=== PATIENT | male | born 1980 | race Two or more races ===

== ENCOUNTER 2016-05-02 17:56 | Emergency (ER) | payer BC, OTHER ==
[2016-05-02 18:04] VITALS: BP 180/109
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
[2016-05-02 19:49] LABS: Hematocrit 50 % (42-52); Hemoglobin 16.9 g/dl (14.0-18.0); Mean Corpuscular HGB Conc 34 g/dl (31-36); Mean Corpuscular Hemoglobin 29 pg (27-31); Mean Corpuscular Volume 86 fL (80-94); Mean Platelet Volume 9 um3 (7.4-10.4); Red Blood Count 5.87 10^6/ul (4.0-5.4); Red Cell Distribution Width 14 % (10.5-15); White Blood Count 11.8 10^3/ul (3.5-10.8)
[2016-05-02 20:04] LABS: Albumin 4.9 g/dL (3.2-5.2); BUN/Creatinine Ratio 13.3 (8-20); Calcium 10.1 mg/dL (8.6-10.3); EGFR African American 110.1 (>60); EGFR Non-African American 85.6 (>60); Globulin 3.3 g/dL (2-4); Potassium 3.7 mmol/L (3.5-5.0); Total Bilirubin 0.4 mg/dL (0.2-1.0); Total Protein 8.2 g/dL (6.4-8.9)
[2016-05-02] MEDS ORDERED: Iohexol 300* (CONTRAST) 10 ML SDV IV ONE (20:17)
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
== END 2016-05-02 21:07 | disposition home or self-care (01) ==
LOC: ED 17:56
DX: R10.84 Generalized abdominal pain (principal); M54.2 Cervicalgia; R07.81 Pleurodynia; F17.210 Nicotine dependence, cigarettes, uncomplicated
CPT/HCPCS: 36415; 72125; 80053; 85025; 99281

== ENCOUNTER 2017-09-17 23:21 | Observation (INO) | payer BC, OTHER ==
[2017-09-17] MEDS ORDERED: Albuterol/Ipratropium NEB.SOL* Albuterol 2.5 MG/Ipratropium 0.5 MG 3 ML ONE (23:47)
[2017-09-17] MEDS ORDERED: Furosemide IV* 10 MG/ML VIAL (40 MG) IV ONE (23:48)
[2017-09-17] MEDS ORDERED: Nitroglycerin 2% OINT* 1 GM PAK TOPICAL ONE (23:49)
[2017-09-17] MEDS ORDERED: nitroGLYCERIN DRIP* 25,000 MCG/250 ML BTL IV ONE (23:53)
[2017-09-18 00:26] LABS: ABS Basophils 0.1 10^3/ul (0-0.2); ABS Eosinophils 0.3 10^3/ul (0-0.6); ABS Lymphocytes 3.6 10^3/ul (1.0-4.8); ABS Monocytes 0.8 10^3/ul (0-0.8); ABS Neutrophils 6.3 10^3/ul (1.5-7.7); ABS Nucleated RBC 0 10^3/ul; Eosinophil % 2.7 % (0-6); Hematocrit 50 % (42-52); Lymphocyte % 32.2 % (25-47); Mean Corpuscular HGB Conc 34 g/dl (31-36); Mean Corpuscular Hemoglobin 29 pg (27-31); Mean Corpuscular Volume 87 fL (80-94); Mean Platelet Volume 8.3 um3 (7.4-10.4); Nucleated Red Blood Cells % 0.1; Platelet Count 234 10^3/ul (150-450); Red Blood Count 5.81 10^6/ul (4.00-5.40); Red Cell Distribution Width 15 % (10.5-15)
[2017-09-18 00:28] LABS: INR 0.95 (0.77-1.02)
[2017-09-18 00:37] LABS: EGFR Non-African American 59.3 (>60)
[2017-09-18] MEDS ORDERED: Aspirin 81 mg CHEW TAB* 81 MG TAB.CHEW PO ONE (00:50)
[2017-09-18] MEDS ORDERED: Nitroglycerin 2% OINT* 1 GM PAK ONE (01:07)
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
[2017-09-18] MEDS ORDERED: ALPRAZolam TAB* 0.5 MG PO PRN (01:47)
[2017-09-18] MEDS ORDERED: Ondansetron INJ* 2 MG/ML VIAL IV PRN (01:48)
[2017-09-18] MEDS ORDERED: Dextrose 50% Syringe 50 ML* 25 GM/50 ML SYRINGE IV PUSH PRN (01:56)
[2017-09-18] MEDS: Acetaminophen TAB* 325 MG PO PRN ×2 (03:33→23:14)
[2017-09-18 06:30] LABS: ABS Basophils 0.2 10^3/ul (0-0.2); ABS Eosinophils 0.2 10^3/ul (0-0.6); ABS Lymphocytes 3.1 10^3/ul (1.0-4.8); ABS Neutrophils 8.4 10^3/ul (1.5-7.7); ABS Nucleated RBC 0 10^3/ul; Eosinophil % 1.9 % (0-6); Hematocrit 45 % (42-52); Hemoglobin 15.5 g/dl (14.0-18.0); Lymphocyte % 23.8 % (25-47); Mean Corpuscular HGB Conc 34 g/dl (31-36); Mean Corpuscular Hemoglobin 30 pg (27-31); Mean Corpuscular Volume 86 fL (80-94); Mean Platelet Volume 8.2 um3 (7.4-10.4); Nucleated Red Blood Cells % 0; Platelet Count 218 10^3/ul (150-450); Red Blood Count 5.26 10^6/ul (4.00-5.40); Red Cell Distribution Width 14 % (10.5-15); White Blood Count 12.9 10^3/ul (3.5-10.8)
--- NOTE | 2017-09-18 07:04 | HP ---
HISTORY AND PHYSICAL: DATE OF ADMISSION: 09/18/17. PRIMARY CARE PROVIDER: Dr. Harrison. HEALTHCARE PROXY: His brother. CODE STATUS: Full. SOURCE OF INFORMATION: History obtained from interview with the patient, review of past medical records. RELIABILITY: Good. CHIEF COMPLAINT: Shortness of breath. HISTORY OF PRESENT ILLNESS: This is a 37-year-old man, who had been in his usual state of health until approximately 1 week ago on Sunday after he drove to [place], woke up suddenly and noticed he was short of breath, hyperventilating and wheezing. He exited the hotel room he was staying and then felt better; however, always felt worse when lying flat but did not feel relieved when sitting up. He noticed worsening dyspnea on exertion throughout the day from his usual exercise tolerance approximately unlimited down to only be able to walk approximately 15 feet without becoming very short of breath. Denied any shortness of breath but did note throughout the week, he developed a cough with several episodes of scant blood in his sputum. Denied any fevers or chills and after returning home 3 days prior to presentation, did note that he started to feel better. He was able to walk a little bit further without dyspnea on exertion; however, still felt below his baseline. On the day of admission, he walked up the stairs to his home, felt tightness in his chest that was relieved with rest but had worsening shortness of breath. It is not associated with nausea, vomiting, or diaphoresis but was noted to be quite diaphoretic on presentation to the hospital. Presenting to the emergency room, he was noted to be tachypneic and hypoxic with presenting blood pressures 205 up to 212 over 125. He was given nitro paste as well as Lasix IV after which he diuresed 800 cc and felt much improved. When seen by this author, he felt much better, although has not ambulated, is no longer short of breath, has no chest pain or other complaints. PAST MEDICAL HISTORY: [place], does not use CPAP although was prescribed; childhood asthma; hypertension; HIV since 2001 on HAART; peripheral neuropathy secondary to HAART mostly in his hands; hyperlipidemia; type 2 diabetes; anxiety and depression; bilateral carpal tunnel release. MEDICATIONS: The patient did not bring a list of his medications, can only recall a few but no doses. He gets his medications from [facility] on [address]. His medications include: 1. Tivicay. 2. Descovy. 3. Tradjenta. 4. Zetia. 5. Hyzaar. 6. Another blood pressure medication. 7. Pravastatin. 8. Xanax 3 times a day. ALLERGIES: No known drug allergies. FAMILY HISTORY: Brother with CAD in his 40s. Father with CAD in his 40s, at 51 from a heart attack. Mother with multiple CVAs. SOCIAL HISTORY: He smokes less than a pack per day for 20 years. No alcohol. No illicits. Works for [employer]. REVIEW OF SYSTEMS: As per HPI including shortness of breath, cough, several episodes of scant blood in the sputum. Otherwise all other systems reviewed are negative. PHYSICAL EXAMINATION GENERAL: Pleasant, sitting up, interactive, in no apparent distress. VITAL SIGNS: When seen by this author, 144/101, heart rate 105, respiratory rate is 18, he is 97% on 2 L, T-max in the emergency room 97.6. HEENT: Oropharynx is clear. Has what appears to be tooth damage in his right lower mouth without pain. He has moist mucous membranes. The sclerae are anicteric. NECK: He has no cervical or supraclavicular lymphadenopathy. LUNGS: Rales in bilateral bases, scattered up to about mid section but not significant clearing the apices. HEART: He has a tachycardic heart rate without murmurs. ABDOMEN: Soft, nontender, and nondistended. EXTREMITIES: Warm and well-perfused. Very trace lower extremity edema. NEUROLOGIC: He is alert and oriented x3. His cranial nerves II to XII are intact. He has no apparent anxiety, agitation, or depression. DIAGNOSTIC STUDIES/LAB DATA: Labs reviewed. Notable for a white blood cell count of 11, hemoglobin 17, platelets 234. Creatinine is 1.34. Troponin I is 0.04. CRP is 19.3. BNP is 99. Data reviewed. Chest x-ray, bilateral pulmonary vascular congestion, no evidence for héctor consolidation on his AP film. EKG, left bundle-branch block, rate of 117. ASSESSMENT AND PLAN: This is a 37-year-old man, who had sudden onset new dyspnea on exertion approximately 1 week prior to presentation with worsening dyspnea on exertion throughout the week now presenting, found tachypneic, new left bundle- branch block since 2003, and hypertension. 1. Hypoxic respiratory failure on admission, resolved with nitroglycerin and Lasix. Likely appears secondary to pulmonary edema, however unclear why he developed new pulmonary edema. Sudden onset of shortness of breath is concerning for pulmonary embolism; however, this would not explain well the rapid resolution with control of his blood pressure and Lasix. The patient indicates he has been tachycardic consistently in the past and this is verified through our previous records. There is concern for an underlying silent cardiac event, potentially leading to heart failure. The EKG was discussed with Dr. Mcknight and Dr. Tolbert. It is my plan to [facility] We will trend troponins. Cardiology consult. Check transthoracic echocardiogram. We will maintain the patient n.p.o. Check lipids, hemoglobin A1c and start an aspirin for elevated troponin with new hypoxia. This may be in the setting of uncontrolled blood pressure. We can consider CTA if no cardiac intervention is sought and transthoracic echocardiogram does not elucidate underlying reason. 2. Hypertension. The patient is unclear of his medications at this time. I am starting amlodipine and hydrochlorothiazide in the morning. He is well controlled at this time. 3. Elevated troponins. Plan as above including trending troponins, Cardiology consult, transthoracic echocardiogram, n.p.o., lipids, hemoglobin, and aspirin. 4. Obstructive sleep apnea. Monitor. The patient does not use CPAP at home, although he likely should. 5. Acute kidney injury. New compared to 2017. Suspect in the setting of poor forward flow over the last week. Trend repeat in the morning. 6. Type 2 diabetes. Lispro sliding scale. 7. Human immunodeficiency virus. Encourage the patient to have someone bring in his medications. 8. DVT prophylaxis. The patient is low risk, ambulate ad maxine. [id number]/[facility] #: [id number] [facility] FACILITYKyrie
[2017-09-18 07:11] LABS: EGFR Non-African American 72.2 (>60)
[2017-09-18] MEDS: Insulin LISPRO* 1 UNITS UNIT SUBCUT SCH ×4 (07:24→21:17)
--- NOTE | 2017-09-18 07:24 | RAD ---
INDICATION: Short of breath COMPARISON: April 04, 2014 TECHNIQUE: An AP portable view obtained at 2345 hours is submitted. FINDINGS: Bones/Soft Tissues: There are no acute bony findings. Cardiomediastinal: The cardiac silhouette is mildly prominent. The central pulmonary vessels and interstitium are prominent consistent with moderate interstitial congestion. There is early alveolar changes well. Lungs: Interstitial and alveolar edema. Pleura: There are no pleural effusions. Other: None IMPRESSION: MODERATE VASCULAR CONGESTIVE CHANGES WITH INTERSTITIAL AND ALVEOLAR EDEMA
[2017-09-18] MEDS ORDERED: diPHENhydraMINE PO* 25 MG PO ONE (08:44)
[2017-09-18] MEDS ORDERED: Diazepam TAB(*) 5 MG PO ONE (08:44)
[2017-09-18] MEDS ORDERED: NS 0.9% 1000 ML* 1,000 ML IV SCH (08:45)
[2017-09-18] MEDS: Aspirin 81 mg CHEW TAB* 81 MG TAB.CHEW PO SCH (08:57)
[2017-09-18] MEDS: Hydrochlorothiazide TAB* 25 MG PO SCH (08:57)
[2017-09-18] MEDS ORDERED: amLODIPine TAB* 5 MG PO SCH (09:00)
--- NOTE | 2017-09-18 09:40 | CONS ---
CC: Dr. Harrison CARDIOLOGY CONSULTATION REPORT: DATE OF CONSULT: 09/18/17 INDICATION FOR CONSULTATION: Cardiomyopathy, left bundle branch block. HISTORY OF PRESENT ILLNESS: The patient is a 37-year-old gentleman with a history of hypertension, d iabetes, smoking who has had 1 week of increasing shortness of breath. The patient states that he wa s down in [place] on vacation and had a mild to moderate cough and started having worsening shortn ess of breath over the last week or so. The patient denied any chest pain. He denied any palpitatio ns. No lightheadedness, dizziness or syncope. The patient states that he would feel short of breath just walking 15 feet around his hotel room. The patient came to the emergency room when he got back to [place] and was found to be significantly hypertensive with blood pressure of 212/125. The patient was admitted to the hospital. PAST MEDICAL HISTORY: Significant for: 1. Obstructive sleep apnea. 2. Hypertension. 3. HIV. 4. Peripheral neuropathy. 5. Diabetes. 6. Anxiety. 7. Tobacco use. OUTPATIENT MEDICATIONS: 1. Typical HIV antiretrovirals. 2. Pravastatin. 3. Xanax. ALLERGIES: No known drug allergies. FAMILY HISTORY: Brother had a history of coronary artery disease, father had a heart attack in his 5 0s. SOCIAL HISTORY: He smokes about a pack a day. No other illicit drugs. He works for [employer] . PHYSICAL EXAM: Height is 5 feet 7 inches, weight 244 pounds. Temperature 98, heart rate is 96, bloo d pressure 145/77, respiratory rate is 22, oxygen saturation 94% on room air. Sclerae anicteric. Or opharynx is pink without erythema. Carotids are 2+ without bruits. JVD is normal. Thyroid is normal . Cardiac Exam: S1, S2 without any murmurs, rubs or gallops. Lungs are clear to auscultation bilate rally. There is no dullness to percussion. Abdomen: Soft, nontender, nondistended with normoactive bowel sounds. Extremities: No edema. He has 2+ pulses throughout. The patient is awake and alert and oriented. He moves all 4 extremities equally. DIAGNOSTIC STUDIES/LAB DATA: EKG demonstrates left bundle branch block in normal sinus rhythm. CBC within normal limits. Chemistries within normal limits. Troponin 0.04 and 0.05. BNP is 99. To hardik cholesterol 218, LDL cholesterol of 132. Preliminary echocardiogram report showed mildly to moderately reduced LV systolic function. Ejection fraction 40%. Septal wall motion abnormality consistent with left bundle branch block. No signific ant valvular abnormalities. IMPRESSION: This is a 37-year-old gentleman who has been having a week's worth of mild cough and inc reasing shortness of breath. The patient was admitted to the hospital with severe shortness of breat h and hypertensive crisis. The patient's EKG shows a new left bundle branch block and his echocardiogram shows mildly to moderat jeana reduced LV systolic dysfunction. PLAN/RECOMMENDATIONS: At this point, I am not exactly sure what the cause of this dysfunction is, co uld be a viral syndrome, could be his HIV, could be coronary artery disease. It is my recommendation the patient undergo cardiac catheterization. The patient will maintain his outpatient medications f or blood pressure control. Further recommendations pending the results of his testing. [id number]/[facility] #: [id number]
[2017-09-18 10:05] LABS: ABS Basophils 0.1 10^3/ul (0-0.2); ABS Eosinophils 0.3 10^3/ul (0-0.6); ABS Lymphocytes 2.7 10^3/ul (1.0-4.8); ABS Neutrophils 7.4 10^3/ul (1.5-7.7); ABS Nucleated RBC 0 10^3/ul; Eosinophil % 2.9 % (0-6); Hematocrit 45 % (42-52); Hemoglobin 15.6 g/dl (14.0-18.0); Lymphocyte % 23.5 % (25-47); Mean Corpuscular HGB Conc 34 g/dl (31-36); Mean Corpuscular Hemoglobin 30 pg (27-31); Mean Corpuscular Volume 86 fL (80-94); Mean Platelet Volume 8.5 um3 (7.4-10.4); Nucleated Red Blood Cells % 0; Platelet Count 217 10^3/ul (150-450); Red Blood Count 5.28 10^6/ul (4.00-5.40); Red Cell Distribution Width 14 % (10.5-15); White Blood Count 11.6 10^3/ul (3.5-10.8)
--- NOTE | 2017-09-18 10:13 | ECHO ---
Patient: IVONE PARK [facility] Rec#: [id number] : 1980 Date: 09/18/2017 Age: 37y Height: 170 cm / 66.9 in Weight: 110.5 kg / 243.5 lbs Sex: M BSA: 2.2 Room#: 453 Admit Date#: 09/18/2017 Type: Inpatient Referring: Wai Austin MD Reading: Isma Andre MD Language Translator: Franchesca Narvaez CHRISTIANO CC: Rudolph Harrison MD Transthoracic Echocardiogram Indication: Pulmary Edema BP: 145/77 HR: 91 Rhythm: NSR Findings History: CONNER without CPAP,asthma,HTN,HIV+,DM,anxiety,+ family history. Technical Comments: The study quality is good. Completed at 0857. Left Ventricle: The left ventricular chamber size is mildly dilated. Moderate concentric left ventricular hypertrophy is observed. There is global hypokinesis of the left ventricle with minor regional variation. There is mild to moderately decreased left ventricular systolic function. The estimated ejection fraction is 40-45%. There is a left ventricular septal wall motion abnormality observed, possibly due to the presence of a left bundle branch block. Abnormal left ventricular diastolic function is observed. Left Atrium: The left atrial chamber size is normal. Right Ventricle: The right ventricular cavity size is normal. The right ventricular global systolic function is normal. The septum has abnormal paradoxical motion consistent with left bundle branch block. Right Atrium: The right atrial cavity size is normal. Aortic Valve: The aortic valve is trileaflet. There is no evidence of aortic valve thickening. There is no evidence of aortic regurgitation. There is no evidence of aortic stenosis. Mitral Valve: The mitral valve leaflets are mildly thickened. There is mild mitral regurgitation. There is no evidence of mitral stenosis. Tricuspid Valve: The tricuspid valve leaflets are normal. There is no evidence of tricuspid valve regurgitation. Unable to estimate the right ventricular systolic pressure. There is no tricuspid stenosis. Pulmonic Valve: The pulmonic valve appears normal. There is no evidence of pulmonic regurgitation. There is no pulmonic stenosis. Pericardium: There is no pericardial effusion. A pericardial fat pad is visualized. Aorta: There is no dilatation of the ascending aorta. There is no dilatation of the aortic arch. There is no dilation of the aortic root. Pulmonary Artery: The main pulmonary artery appears normal. Venous: The venous system is not well visualized. Summary: There was not any prior study for comparison. Conclusions Moderate concentric left ventricular hypertrophy is observed. The estimated ejection fraction is 40-45%. There is mild to moderately decreased left ventricular systolic function. The right ventricular global systolic function is normal. There is no evidence of aortic stenosis. There is mild mitral regurgitation. There is no evidence of tricuspid valve regurgitation. Unable to estimate the right ventricular systolic pressure. There is no pericardial effusion. Measurements Name Value Normal Range RVIDd (AP) 2D 3.1 cm (0.9 - 2.6) RVDdMajor (2D) 3.9 cm (2.2 - 4.4) RAd ISD 4CH 3.9 cm (3.4 - 4.9) RA (A4C)W 5 cm (2.9 - 4.6) IVSd (2D) 1.4 cm (0.6 - 1) LVPWd (2D) 1.6 cm (0.6 - 1) LVIDd (2D) 5.8 cm (3.6 - 5.4) LVIDs (2D) 4.4 cm - LV FS 24 % - Aortic Annulus 2.2 cm (1.4 - 2.6) Ao root diameter (2D) 3 cm (2.1 - 3.5) Ascending Ao 2.9 cm (2.1 - 3.4) Aortic arch 2.1 cm (1.8 - 3.4) Descending Ao 0.8 cm - LA dimension (AP) 2D 3.8 cm (2.3 - 3.8) LAd ISD 4CH 3.8 cm (2.9 - 5.3) LA ISD 4CH W 5.8 cm (2.5 - 4.5) Name Value Normal Range LA ESV SP 4CH (A/L) 24 ml - LA ESV SP 2CH (A/L) 29 ml - LA ESV BP (A/L) 59 ml - LA ESV BP (A/L) index 27 ml/m2 - Name Value Normal Range MV E-wave Vmax 1.3 m/sec - MV deceleration time 84 msec - MV A-wave Vmax 0.6 m/sec - MV E:A ratio 2.1 ratio - LV septal e' Vmax 0.5 m/sec - LV lateral e' Vmax 1 m/sec - LV E:e' septal ratio 26 ratio - LV E:e' lateral ratio 13 ratio - Name Value Normal Range AV Vmax 1.6 m/sec - AV VTI 26.7 cm - AV peak gradient 10 mmHg - AV mean gradient 5 mmHg - LVOT Vmax 1.1 m/sec - LVOT VTI 18.2 cm - LVOT peak gradient 5 mmHg - LVOT mean gradient 2 mmHg - Name Value Normal Range PV Vmax 1.2 m/sec - PV peak gradient 6 mmHg -
[2017-09-18] MEDS ORDERED: Heparin 2 UNITS/ML IVPREMIX* 2,000 ML IV ONE (10:15)
[2017-09-18] MEDS ORDERED: Iohexol 350 (CONTRAST) 200 ML MDV IV ONE (10:16)
[2017-09-18] MEDS ORDERED: Lidocaine 1% INJ* 10 MG/ML 30 ML SDV ONE (10:16)
[2017-09-18 10:18] LABS: INR 1.02 (0.77-1.02)
--- NOTE | 2017-09-18 10:23 | PN ---
Subjective Date of Service: 09/18/17 Interval History: Pt feels well. Has been SOB for 1 week. Denies CP. Has been hypertensive "all his life" Objective Active Medications: Acetaminophen (Tylenol Tab*) 650 mg PO Q4H PRN PRN Reason: FEVER/PAIN Last Admin: 09/18/17 03:33 Dose: 650 mg Alprazolam (Xanax Tab*) 1 mg PO TID PRN PRN Reason: ANXIETY Amlodipine Besylate (Norvasc Tab*) 10 mg PO DAILY [facility] Last Admin: 09/18/17 08:57 Dose: 10 mg Aspirin (Aspirin 81 Mg Chew Tab*) 81 mg PO DAILY [facility] Last Admin: 09/18/17 08:57 Dose: 81 mg Atorvastatin Calcium (Lipitor*) 10 mg PO 1400 [facility] Dextrose (D50w Syringe 50 Ml*) 12.5 gm IV PUSH .FOR FS < 60 - SS PRN PRN Reason: FS < 60 Dolutegravir Sodium (Tivicay (Nf)) 50 mg PO 1400 [facility] Hydrochlorothiazide (Hydrodiuril Tab*) 25 mg PO DAILY [facility] Last Admin: 09/18/17 08:57 Dose: 25 mg Sodium Chloride (Ns 0.9% 1000 Ml*) 1,000 mls @ 100 mls/hr IV .per rate [facility] Last Admin: 09/18/17 08:56 Dose: 100 mls/hr Insulin Human Lispro (Humalog*) 0 units SUBCUT Q6H [facility]; Protocol Last Admin: 09/18/17 07:24 Dose: Not Given Ondansetron HCl (Zofran Inj*) 4 mg IV Q4H PRN PRN Reason: NAUSEA/VOMITING Vital Signs - 8 hr 09/18/17 09/18/17 09/18/17 02:18 02:33 04:03 Temperature 98.0 F Pulse Rate 103 101 96 Respiratory 30 34 22 Rate Blood Pressure 141/88 141/98 145/77 (mmHg) O2 Sat by Pulse 97 95 94 Oximetry 09/18/17 09/18/17 09/18/17 07:15 07:30 10:13 Temperature 98.2 F Pulse Rate 92 Respiratory 22 18 18 Rate Blood Pressure 141/76 (mmHg) O2 Sat by Pulse 96 Oximetry Oxygen Devices in Use Now: None, OxyMask Appearance: 37 yo M in nAD, aAOx3 Eyes: No Scleral Icterus, PERRLA Ears/Nose/Mouth/Throat: NL Teeth, Lips, Gums, Mucous Membranes Moist Neck: NL Appearance and Movements; NL JVP, Trachea Midline Respiratory: Symmetrical Chest Expansion and Respiratory Effort, Clear to Auscultation Cardiovascular: NL Sounds; No Murmurs; No JVD, RRR Abdominal: NL Sounds; No Tenderness; No Distention Lymphatic: No Cervical Adenopathy Extremities: No Edema, No Clubbing, Cyanosis Skin: No Rash or Ulcers, No Nodules or Sclerosis Neurological: Alert and Oriented x 3, NL Muscle Strength and Tone Result Diagrams: 09/18/17 09:53 09/18/17 09:53 Assess/Plan/Problems-Billing Assessment: 37 yo M with h/o CONNER/HIV/DM2 presents with pulm edema - Patient Problems (1) Pulmonary edema Comment: EKG with LBBB EF 45% mild troponin levation. clinically markedly improved with SOB resolved, comfortable on RA for cath today cont ASA, appreciate cardiology consult (2) DM2 (diabetes mellitus, type 2) Comment: Cont ISS HbA1C 7.5 (3) Dyslipidemia Comment: LDL 130, lipitor started (4) HIV (human immunodeficiency virus infection) Comment: cont Truvada and Dolutgravir Reguesting med records from [facility] (Morgan Ceballos BOARDING MACHINE OPERATOR [phone]) CD4 count ordered (5) HTN (hypertension) Comment: cont HCTX and Norvasc (6) DVT prophylaxis Comment: low risk, ambulation Status and Disposition: inpatient
[2017-09-18] MEDS ORDERED: fentaNYL* 50 MCG/ML 2 ML VIAL (100 MCG VIAL) ONE (10:24)
[2017-09-18] MEDS ORDERED: Midazolam* 1 MG/ML 10 ML VIAL (10 MG) ONE (10:24)
[2017-09-18] MEDS ORDERED: nitroGLYCERIN DRIP* 25,000 MCG/250 ML BTL ONE (10:28)
[2017-09-18] MEDS ORDERED: Heparin(*) 1000 UNIT/ML 10 ML VIAL CATH LAB IV ONE (10:28)
[2017-09-18] MEDS ORDERED: VERAPAMIL 2.5 MG/ML 2 ML VIAL ** 5 mg/2 ml ONE (10:28)
[2017-09-18] MEDS ORDERED: Albuterol/Ipratropium NEB.SOL* Albuterol 2.5 MG/Ipratropium 0.5 MG 3 ML ONE (10:52)
[2017-09-18] MEDS ORDERED: Albuterol/Ipratropium NEB.SOL* Albuterol 2.5 MG/Ipratropium 0.5 MG 3 ML INH ONE (10:56)
[2017-09-18] MEDS ORDERED: Nicotine Inhaler* 10 MG AMP INH PRN (13:50)
[2017-09-18] MEDS ORDERED: Mouth Piece, Nicotine* 1 EACH CARTRIDGE INH PRN ×2 (13:50)
[2017-09-18] MEDS ORDERED: Atorvastatin* 10 MG TAB PO SCH (14:00)
[2017-09-18] MEDS ORDERED: Dolutegravir (NF) 50 MG TAB PO SCH (14:00)
[2017-09-18] MEDS: Nicotine PATCH 21 MG/24 HR* PATCH TRANSDERM SCH (14:36)
[2017-09-18] MEDS: Lisinopril TAB* 5 MG PO SCH (16:24)
--- NOTE | 2017-09-18 20:37 | CATH ---
CC: Dr. Harrison CARDIAC CATHETERIZATION REPORT: DATE OF PROCEDURE: 09/18/17 PROCEDURE: Cardiac catheterization including right radial artery catheterization, coronary angiograp hy. INDICATION: Cardiomyopathy, congestive heart failure, left bundle-branch block. HISTORY: The patient is a 37-year-old gentleman with a history of hypertension, smoking, HIV who was admitted to the hospital with severe shortness of breath. The patient noticed significant change in his overall status a week ago. It got to the point where he could only walk 15 feet without being s hort of breath. His echocardiogram shows an ejection fraction of 40%. His EKG shows a new left bund le- branch block. Cardiac catheterization was recommended to evaluate coronary artery disease. DESCRIPTION OF PROCEDURE: The patient was in a fasting state. Informed consent had been obtained pr ior to the procedure. All labs had been reviewed. The patient was placed supine on the procedure ta ble. Initially, the patient felt very claustrophobic and had a panic attack, he sat up. The patient was treated with some IV Versed and a nebulizer treatment. This seemed to significantly improve his symptoms. The patient was able to lie down and the right wrist area was prepped and draped in the u sual fashion. 1% lidocaine was used for local anesthesia. The right radial artery was entered by a Seldinger technique and a guidewire was placed. Over the guidewire, a 6-Martiniquais hydrophilic sheath wa s placed. The patient underwent coronary angiography using a 6-Martiniquais TIG catheter and a 6-Martiniquais AR 1 catheter. At the end of the procedure, all sheaths and catheters were removed. The patient tolerat ed the procedure well with no complications. A total of 85 cc of Omnipaque dye was used and a total of 6.2 minutes of fluoro time was used. HEMODYNAMICS: Central aortic blood pressure 143/104 with a mean of 112. Left main artery: The left main was normal in size, it bifurcated into the LAD and circumflex. Ther e was no evidence of stenosis. Left anterior descending artery: The LAD was normal in size. It gave off 3 diagonal vessels. There was no evidence of stenosis. Left circumflex artery: The circumflex artery was normal in size. It gave off 3 obtuse marginal bra nches and the PDA. The was no evidence of stenosis. Right coronary artery: The right coronary artery was a small nondominant vessel without coronary art jonn disease. IMPRESSION: Normal coronary arteries. RECOMMENDATION: The patient will be continued on maximum medical therapy for his congestive heart fa agustin. [id number]/[facility] #: [id number]
[2017-09-18] MEDS ORDERED: Nicotine Patch Removal NOTE PATCH OFF SCH (21:00)
[2017-09-18] MEDS ORDERED: Carvedilol TAB* 6.25 MG PO SCH (21:00)
[2017-09-19] MEDS ORDERED: Potassium Chlor TAB* 20 MEQ TAB.ER PO ONE (03:15)
[2017-09-19 06:47] LABS: ABS Basophils 0.1 10^3/ul (0-0.2); ABS Eosinophils 0.3 10^3/ul (0-0.6); ABS Lymphocytes 2.8 10^3/ul (1.0-4.8); ABS Monocytes 0.8 10^3/ul (0-0.8); ABS Neutrophils 5.7 10^3/ul (1.5-7.7); ABS Nucleated RBC 0 10^3/ul; Eosinophil % 3.1 % (0-6); Hematocrit 49 % (42-52); Mean Corpuscular HGB Conc 35 g/dl (31-36); Mean Corpuscular Hemoglobin 30 pg (27-31); Mean Corpuscular Volume 85 fL (80-94); Mean Platelet Volume 8.3 um3 (7.4-10.4); Nucleated Red Blood Cells % 0; Platelet Count 210 10^3/ul (150-450); Red Blood Count 5.75 10^6/ul (4.00-5.40); Red Cell Distribution Width 14 % (10.5-15); White Blood Count 9.7 10^3/ul (3.5-10.8)
[2017-09-19 07:04] LABS: EGFR Non-African American 89.3 (>60)
[2017-09-19] MEDS: Insulin LISPRO* 1 UNITS UNIT SUBCUT SCH (07:40)
[2017-09-19 07:42] VITALS: BP 154/100
[2017-09-19] MEDS ORDERED: Benzocaine/Menthol LOZ* 1 LOZENGE PO PRN (08:54)
[2017-09-19] MEDS ORDERED: Carvedilol TAB* 6.25 MG PO SCH (09:00)
[2017-09-19] MEDS: Nicotine PATCH 21 MG/24 HR* PATCH TRANSDERM SCH (09:37)
[2017-09-19] MEDS: Hydrochlorothiazide TAB* 25 MG PO SCH (09:38)
[2017-09-19] MEDS: Aspirin 81 mg CHEW TAB* 81 MG TAB.CHEW PO SCH (09:38)
[2017-09-19] MEDS: Lisinopril TAB* 5 MG PO SCH (09:38)
--- NOTE | 2017-09-19 12:29 | DS ---
CC: Dr. Harrison; Morgan Ceballos NP from [facility] in [facility], the fax number is [phone]; Dr. Andre. DISCHARGE SUMMARY: DATE OF ADMISSION: 09/18/17 DATE OF DISCHARGE: 09/19/17 PRIMARY CARE PROVIDER: Dr. Harrison. DISCHARGE DIAGNOSES: 1. Acute pulmonary edema due to acute diastolic congestive heart failure and uncontrolled hypertensi on. 2. Non-ischemic cardiomyopathy with EF of 40% to 45%, status post cardiac catheterization performed by Dr. Andre on 09/18/17 which showed EF of 40% and normal coronary arteries. 3. Non-ischemic cardiomyopathy as mentioned above. SECONDARY DIAGNOSES: 1. History of diabetes, type 2. 2. History of obesity. 3. History of human immunodeficiency virus. 4. Dyslipidemia. 5. Neuropathy. 6. Obstructive sleep apnea. 7. History of asthma. MEDICATIONS AT DISCHARGE: Include: 1. Coreg 12.5 mg b.i.d. 2. Zetia 10 mg daily. 3. Tradjenta 5 mg daily. 4. Truvada 1 tablet daily. 5. Oxycodone/acetaminophen on a p.r.n. basis. 6. Lovaza 4 tablets daily. 7. Multivitamin 1 tablet daily. 8. Losartan/hydrochlorothiazide 100/12.5 one tablet daily. 9. Ibuprofen on a p.r.n. basis. 10. Tivicay 50 mg daily. 11. Flexeril 10 mg on a p.r.n. basis. 12. Lipitor 10 mg daily. 13. Xanax 1 mg b.i.d. p.r.n. 14. Albuterol inhaler on a p.r.n. basis. LABORATORY DATA AND STUDIES PERFORMED DURING THE HOSPITAL STAY: Included: On 09/19/17: Sodium of 138, potassium of 4.0, chloride 103, carbon-dioxide 28, BUN 16, and creatinin e of 0.94. The patient's TSH on admission was 1.24. Triglycerides were 292, cholesterol total of 218, LDL of 132, and HDL of 27. Last CBC obtained on 09/19/17 white blood cell count of 9.4, hemoglobin of 17.0, hematocrit of 49, an d platelets of 210. Transthoracic echocardiogram obtained on 09/18/17 showed EF of 40% to 45% with moderate concentric LV H. There was mild mitral regurgitation. Cardiac catheterization performed by Dr. Andre from the right radial approach on 09/18/17 showed "nor mal coronary arteries". It was also noted for the patient to have an EF of 40% during cardiac cathet erization. Portable chest x-ray obtained on 09/17/17: Impression: Moderate vascular congestive changes with in terstitial and alveolar edema ". The patient troponins ranged from 0.04 to 0.05 throughout the patient's hospital stay. His brain naresh riuretic peptide was 99 on admission. CONSULTATIONS DURING THE HOSPITAL STAY: Included Dr. Andre from cardiology. HOSPITALIZATION COURSE: Robert Yarbrough is a 37-year-old male with a history of diabetes, obesi ty, obstructive sleep apnea, and hypertension who stated that he has had uncontrolled hypertension fo r at least a year, presented to the hospital with systolic pressures in the 200s range and pulmonary edema. The patient also was noted to have left bundle branch block with no known baseline EKG. At t his point the patient was admitted to the hospital, diuresed. His troponin were obtained and were in termediate. His EF was noted to be 40% to 45% and due to that cardiology consult was requested. Dr. Adnre recommended for the patient to undergo cardiac catheterization. It was performed on 09/18/17, which showed normal coronaries. At this point, the patient was diagnosed with non-ischemic cardiomy opathy. It is likely related to the uncontrolled hypertension and mild diastolic dysfunction. His N orvasc was discontinued and he was placed on Coreg, which was titrated up. By the time of discharge, the patient's blood pressure was in the 160s range and at that point the patient's Coreg was increas ed from 6.25 Mg b.i.d. to 12.5 mg b.i.d. Please note that the patient was advised to stay for at [facility] several hours longer to try to monitor his blood pressures more accurately, but he refused. The p atient requested to be discharged home and stated that he has family and children at home that he has to attend to. He is recommended to follow up with Dr. Harrison in approximately four to seven days [address] Dr. Andre in approximately 1 to 2 weeks. Please note that I obtained medical records from Morgan Ceballos, the patient's nurse practitioner who mateusz akes care of his HIV needs at [facility]. As per the medical records, the patient's last CD4 count was 671 and HIV viral load undetectable and that was obtained on 05/23/17. Please also note that the patient's hemoglobin A1c obtained on 09/18/17 was 7.5. PHYSICAL EXAMINATION: At the time of discharge: Blood pressure 154/100, heart rate of 88 and regula r, respiratory rate of 16, oxygen saturation 98% on room air, and temperature 98.0. General Appearance: The patient is a very pleasant 37-year-old obese male who is in no acute distres s. Alert, awake, and oriented x3. HEENT: Head atraumatic and normocephalic. Eyes: Pupils are equal, round, and reactive to light and accommodation. Oropharynx clear. Mucosa moist. Neck: Supple. No JVD, no bruits bilaterally. Cardiovascular: Regular, rate, and rhythm. No murmur. Respiratory: Clear to auscultation bilaterally. Abdomen: Soft and nontender. Bowel sounds present in all 4 quadrants. Extremities: There is no edema. Pulses are +2 bilaterally. No clubbing or cyanosis. Neuro Evaluation: Cranial nerves II through XII grossly intact. Motor strength is 5/5 bilaterally. Please note that this is a short summary of the patient's hospitalization, please refer to further me dical records for details. TIME SPENT: Approximately 40 minutes was spent on the patient's discharge. [id number]/[facility] #: [id number]
== END 2017-09-19 11:15 | disposition home or self-care (01) ==
LOC: ED 23:21 → MEDTELE 09-18 01:48 → INTOOBSV 09-18 01:48
PROVIDERS: ADMIT Internal Medicine; ATTEND Internal Medicine
DX: I11.0 Hypertensive heart disease with heart failure (principal); I50.31 Acute diastolic (congestive) heart failure; R06.02 Shortness of breath; J81.0 Acute pulmonary edema; I42.9 Cardiomyopathy, unspecified; E11.9 Type 2 diabetes mellitus without complications; E66.9 Obesity, unspecified; E78.5 Hyperlipidemia, unspecified; G62.9 Polyneuropathy, unspecified; G47.33 Obstructive sleep apnea (adult) (pediatric); F17.210 Nicotine dependence, cigarettes, uncomplicated; R00.2 Palpitations; J96.90 Respiratory failure, unspecified, unspecified whether with hypoxia or hypercapnia; I45.4 Nonspecific intraventricular block; I25.10 Atherosclerotic heart disease of native coronary artery without angina pectoris
CPT/HCPCS: 36415; 71045; 80048; 80053; 80061; 83036; 83605; 83735; 83880; 84443; 84484; 85025; 85610; 85730; 86140; 86359; 86360; 87040; 93005; 93306; 93454; 94640; 99156; 99157; 99284; 99285; A9270-GY; C1887; G0378; J1644; J1940; J2250; J3010

== ENCOUNTER 2018-04-23 06:53 | Inpatient (IN) | payer BC ==
--- OUTSIDE RECORDS SUMMARY | 2018-04-23 07:22 | XMS REPORT | Continuity of Care Document ---
:1980 External Reference #:[id number] Author Name Janay Mendez Care Team Providers Name Role Phone Rudolph Harrison MD Primary Care Physician Unavailable Payers Type Date Identification Numbers Payment Provider Subscriber Effective: Policy Number: BS [employer]ets Robert Yarbrough 2013 [id number] PayID: [id number] [address] [address] [place] [address] Expires: 2017 Policy Number: Uninsured Care Robert Chow [id number] [facility] PayID: [id number] [facility] [address] [place] [address] Advance Directives Description No Information Available Problems Date Description Provider Status Onset: 07/13/2014 Disturbance in sleep behavior Criss Zamudio MD Active Onset: 07/13/2014 Obesity Criss Zamudio MD Active Onset: 07/13/2014 Tobacco user Criss Zamudio MD Active Onset: 09/15/2014 Obstructive sleep apnea of Lois Lisa DNP, RN, Active adult [employer] Family History Date Family Member(s) Problem(s) Comments General Paternal and Maternal Grandparents diabetes Father due to at 51 yo of [place] () Father Hypertension Father Heart Disease Mother Stroke Mother Diabetes Type II Mother Hypercholesterolemia Siblings 2 Siblings Older brother w/2 stents; middle brother HTN/thryroid/Cho Social History Type Date Description Comments Sex Unknown Marital Status Single Lives With Mother Lives With Brother 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[employer], 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 Tobacco Use Start: Unknown Light tobacco smoker (10 or fewer cigarettes/day) Smoking Status Reviewed: 04/17/18 Light tobacco smoker (10 or fewer cigarettes/day) ETOH Use Rarely consumes alcohol Tobacco Use Start: Unknown Patient is a current smoker, smokes every day Recreational Drug Use Denies Drug Use Exercise Type/Frequency Exercises rarely Allergies, Adverse Reactions, Alerts Description No Known Drug Allergies Medications Medication Date Status Form Strength Qnty SIG Indications Ordering Provider Xanax 00/00/ Active Tablets 1mg 1 po bid Unknown 0000 prn Tivicay / Active Tablets 50mg 1 by Unknown 0000 mouth every day Tradjenta / Active Tablets 5mg 1 by Unknown 0000 mouth every day Carvedilol / Active Tablets 12.5mg 1 by Unknown 0000 mouth twice a day Zetia / Active Tablets 10mg 1 by Unknown 0000 mouth every day Oxycodone-Acetami / Active Tablets 5-325mg 1-2 tabs Unknown nophen 0000 by mouth every 4-6 hours as needed for pain Entresto / Active Tablets 49-51mg 1 tab by Unknown 0000 mouth twice daily Pravastatin / Active Tablets 40mg take 1 Unknown Sodium 0000 tablet by mouth at bedtime Spironolactone / Active Tablets 25mg 1 by Unknown 0000 mouth every day Furosemide / Active Tablets 40mg 1 by Unknown 0000 mouth every day Aspirin Ec Low / Active Tablets DR 81mg 1 by Unknown Dose 0000 mouth every day Intelence 05/14/ Hx Tablets 200mg 60tabs 2 tabs Santhosh Fernández 2013 - daily Abby, 07/07/ MKatrin 2014 Truvada / Hx Tablets 200-300mg 21tabs 1 po qd Unknown 0000 - 2018 Lipitor / Hx Tablets 10mg 90tabs 1 po Unknown 0000 - daily 2018 Hyzaar / Hx (?) 1 tab po Unknown 0000 - daily 2017 Lofibra 00/ Hx (?) 1 tab po Unknown 0000 - daily 2017 Multivitamins / Hx Capsules 30caps 1 Unknown 0000 - capsule marian;y 2017 Ibuprofen 00/ Hx Tablets 600mg 60tabs 1 po tid Unknown 0000 - prn 2018 Doxycycline /00/ Hx (?) 1 tab po Unknown 0000 - bid 2014 Topamax / Hx Tablets 25mg 1 by Unknown 0000 - mouth daily 2018 Dresser 3 / Hx Capsules 1000mg 1 by Unknown 0000 - mouth 09/25/ qd. 2018 Losartan / Hx Tablets 100-12.5mg take 1 Unknown Potassium/Hydroch 0000 - tablet lorothiazide once 2018 daily Lovaza / Hx Capsules 1gm 4 Unknown 0000 - tablets daily 2018 Multivitamin / Hx Tablets 1 by Unknown Adult 0000 - mouth every 2018 day Cyclobenzaprine / Hx Tablets 10mg 1 tablet Unknown HCL 0000 - by mouth q8 hours 2018 prn Ventolin HFA / Hx Aerosol 108(90Base 2 puffs Unknown 0000 - ) mcg/Act by mouth four 2018 times a day as needed Medications Administered in Office Medication Date Status Form Strength Qnty SIG Indications Ordering Provider Depomedrol Administered Injection Santhosh Fernández 20MG 015 Loli Mora Immunizations CPT Code Status Date Vaccine Lot # [id number] Given 07/13/2014 Fluvirin Im 3Yrs And Older Vital Signs Date Vital Result Comment 04/17/2018 1:28pm Height 67 inches 5'7" Weight 248.00 lb without shoes Heart Rate 100 /min BP Systolic Sitting 138 mmHg Lue lg cuff BP Diastolic Sitting 92 mmHg Lue lg cuff BP Systolic Standing 140 mmHg Lue lg cuff BP Diastolic Standing 100 mmHg Lue lg cuff Respiratory Rate 18 /min BMI (Body Mass Index) 38.8 kg/m2 11/21/2017 12:10pm Height 67 inches 5'7" Weight 233.00 lb Heart Rate 86 /min BP Systolic Sitting 114 mmHg lue lg cuff BP Diastolic Sitting 80 mmHg lue lg cuff BP Systolic Standing 120 mmHg BP Diastolic Standing 90 mmHg Respiratory Rate 18 /min BMI (Body Mass Index) 36.5 kg/m2 Ejection Fraction 40-45% 09/18/2017 echo 09/26/2017 1:57pm Height 67 inches 5'7" Weight 236.00 lb Heart Rate 108 /min BP Systolic Sitting 148 mmHg aleisha large cuff BP Diastolic Sitting 90 mmHg aleisha large cuff Respiratory Rate 22 /min BMI (Body Mass Index) 37.0 kg/m2 09/15/2014 2:37pm Height 67 inches 5'7" Weight 236.00 lb Pt Stated wgt Heart Rate 97 /min BP Systolic Sitting 142 mmHg BP Diastolic Sitting 92 mmHg Respiratory Rate 18 /min O2 % BldC Oximetry 97 % BMI (Body Mass Index) 37.0 kg/m2 07/13/2014 1:49pm Height 67 inches 5'7" Weight 245.00 lb with shoes on Heart Rate 103 /min BP Systolic Sitting 162 mmHg BP Diastolic Sitting 102 mmHg Respiratory Rate 20 /min Body Temperature 97.3 F O2 % BldC Oximetry 98 % BMI (Body Mass Index) 38.4 kg/m2 Neck Circumference in inches 17.25 07/08/2014 11:16am Height 66.5 inches 5'6.50" Weight 241.00 lb Heart Rate 68 /min BP Systolic Sitting 142 mmHg BP Diastolic Sitting 86 mmHg Respiratory Rate 16 /min BMI (Body Mass Index) 38.3 kg/m2 05/14/2013 9:21am Heart Rate 92 /min BP Systolic Sitting 180 mmHg BP Diastolic Sitting 112 mmHg Respiratory Rate 12 /min Results Description No Information Available Procedures Date Code Description Status 04/17/2018 50589 EKG Tracing & Interpretation Completed 11/21/2017 60278 EKG Tracing & Interpretation Completed 09/26/2017 88715 EKG Tracing & Interpretation Completed 09/18/2017 79092 Cath PLMT&NJX L Ventriculog Img S&I Completed 09/18/2017 53556 ECHO Transthorasic Realtime 2D W Doppler & Color Flow Hosp Completed 09/18/2017 73141 EKG, Interpretation Only Completed 07/21/2014 27377 Sleep Study Unattended,HRT Rate,Oxygen Sat,Resp Completed Effort/Airflow 07/08/2014 Injection, Carpal Tunnel Completed 05/30/2013 62170 Nerve Conduction 07-08 Studies Completed Encounters Type Date Location Provider Dx Diagnosis Office Visit 11/21/2017 [facility] Isma Champagne R94.31 Abnormal 12:15p Of Rocio Andre M.D. electrocardiogram [ECG] [EKG] I44.7 Left bundle-branch block, unspecified I42.9 Cardiomyopathy, unspecified I50.9 Heart failure, unspecified Office Visit 09/19/2017 [facility] Renee Bah, J96.10 Chronic 8:57a Assocdebra M.D. respiratory Hospitalists failure, unsp w hypoxia or hypercapnia I10 Essential (primary) hypertension J81.0 Acute pulmonary edema I25.5 Ischemic cardiomyopathy E11.9 Type 2 diabetes mellitus without complications E78.5 Hyperlipidemia, unspecified G47.33 Obstructive sleep apnea (adult) (pediatric) Office Visit 09/18/2017 Glad[facility] Champagne I42.9 Cardiomyopathy, 3:52p Cardiology Of Loli Andre unspecified Rocio I44.7 Left bundle-branch block, unspecified I50.9 Heart failure, unspecified B20 Human immunodeficiency virus [HIV] disease Office Visit 09/18/2017 8:56a [facility] Wai J96.10 Chronic Assoc,debra Austin M.D. respiratory Hospitalists failure, unsp w hypoxia or hypercapnia I10 Essential (primary) hypertension R79.89 Other specified abnormal findings of blood chemistry G47.33 Obstructive sleep apnea (adult) (pediatric) N17.9 Acute kidney failure, unspecified E11.9 Type 2 diabetes mellitus without complications Office Visit 09/15/2014 [facility] And Lois 327.23 Obstructive Sleep 2:30p Sleep Services Of WALDEMAR Lisa, RN, Apnea Adult & [facility] 07/13/2014 [facility] And Criss Zamudio, 780.50 Sleep Disturbance 2:15p Sleep Services Of MD Jules Chan 278.00 Obesity Unspec 305.1 Tobacco Use Disorder Office Visit 07/08/2014 11:00a [facility] Santhosh Fernández 354.0 Carpal Tunnel Services Of Rocio Mora M.D. Syndrome 346.10 Migraine Common W/O Intractable W/O Status Migrainosus Office Visit 05/14/2013 [place] Meg Fernández 354.0 Carpal Tunnel 9:00a Services Of Rocio Mora M.D. Syndrome Office Visit 01/20/2012 [facility] Daphne 481 Pneumonia 3:07p Assoc,debra Molina M.D. Pneumococcal Hospitalists 042 HIV Disease 785.0 Tachycardia Unspec 995.90 Systemic Inflammatory Response Syndrome, Unspecified Office Visit 01/19/2012 10:18a [place] Jeff Champagne V08 HIV Infection Jeffrey Mosqueda M.D. Asymptomatic Diseases Status 486 Pneumonia Organism Unspec Office Visit 01/19/2012 3:06p [facility] Daphne 481 Pneumonia Assocdebra M.D. Pneumococcal Hospitalists 042 HIV Disease 785.0 Tachycardia Unspec 995.90 Systemic Inflammatory Response Syndrome, Unspecified Office Visit 01/18/2012 3:06p [facility] 481 Pneumonia Assoc,pc Loli Anderson Pneumococcal Hospitalists 042 HIV Disease 785.0 Tachycardia Unspec 995.90 Systemic Inflammatory Response Syndrome, Unspecified Plan of Treatment Future Appointment(s):05/01/2018 9:00 am - Traveling ECHO 1 at [facility]04/23/2018 7:30 am - Criss Zamudio MD at [facility] Of [facility]04/17/2018 - Isma Andre M.D.I42.9 Cardiomyopathy, unspecifiedNew Orders:Echocardiogram, Scheduled: 05/01/18Follow up:6 monthsRecommendations:Stop smoking Continue current toewilncampH97.7 Left bundle -branch block, vtdupwvwaipA79.31 Abnormal electrocardiogram [ECG] [EKG]
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
[2018-04-23] MEDS ORDERED: Levofloxacin 750 MG IVPREMIX(* 750 MG/150 ML BAG IVPB ONE (07:55)
[2018-04-23] MEDS ORDERED: Piperacillin/Tazobac ADVAN(*) 3.375 GM in NS 0.9% 100 ML* 100 ML IVPB ONE (07:55)
[2018-04-23] MEDS ORDERED: NS 0.9% 1000 ML** 1,000 ML IV.FLUID IV ONE (07:55)
[2018-04-23 08:34] LABS: ABS Basophils 0.1 10^3/ul (0-0.2); ABS Eosinophils 0.1 10^3/ul (0-0.6); ABS Lymphocytes 1.3 10^3/ul (1.0-4.8); ABS Neutrophils 11.8 10^3/ul (1.5-7.7); ABS Nucleated RBC 0 10^3/ul; Eosinophil % 0.9 %; Hematocrit 48 % (42-52); Hemoglobin 15.9 g/dl (14.0-18.0); Lymphocyte % 8.9 %; Mean Corpuscular HGB Conc 33 g/dl (31-36); Mean Corpuscular Hemoglobin 29 pg (27-31); Mean Corpuscular Volume 87 fL (80-94); Mean Platelet Volume 8.8 fL (7.4-10.4); Nucleated Red Blood Cells % 0; Platelet Count 218 10^3/ul (150-450); Red Blood Count 5.53 10^6/ul (4.00-5.40); Red Cell Distribution Width 16 % (10.5-15); White Blood Count 14.3 10^3/ul (3.5-10.8)
[2018-04-23] MEDS ORDERED: Albuterol/Ipratropium NEB.SOL* Albuterol 2.5 MG/Ipratropium 0.5 MG 3 ML INH ONE (08:37)
[2018-04-23 08:38] LABS: Activated Partial Thrombo Time 28.7 seconds (26.0-36.3); INR 0.98 (0.77-1.02)
[2018-04-23] MEDS ORDERED: Albuterol/Ipratropium NEB.SOL* Albuterol 2.5 MG/Ipratropium 0.5 MG 3 ML ONE (08:38)
[2018-04-23 08:47] LABS: Influenza A Molecular NEGATIVE (Negative); Influenza B Molecular NEGATIVE (Negative)
[2018-04-23 08:50] LABS: Albumin 4.3 g/dL (3.2-5.2); Albumin/Globulin Ratio 1.4 (1-3); BUN/Creatinine Ratio 17.3 (8-20); C Reactive Protein 19.25 mg/L (<8.01); Calcium 9.3 mg/dL (8.6-10.3); EGFR African American 89.7 (>60); EGFR Non-African American 74.1 (>60); Globulin 3.1 g/dL (2-4); Potassium 4.3 mmol/L (3.5-5.0); Total Bilirubin 0.8 mg/dL (0.2-1.0); Total Protein 7.4 g/dL (6.4-8.9)
[2018-04-23 08:51] LABS: Troponin I 0.04 ng/mL (<0.04)
[2018-04-23] MEDS ORDERED: Carvedilol TAB* 6.25 MG PO ONE (09:23)
[2018-04-23 09:45] LABS: Erythrocyte Sed Rate 11 mm/Hr (0-14)
[2018-04-23] MEDS ORDERED: Albuterol HFA INHALER* 8 gm MDI INH PRN (10:23)
[2018-04-23] MEDS ORDERED: Dextrose 50% Syringe 50 ML* 25 GM/50 ML SYRINGE IV PUSH PRN (10:26)
[2018-04-23] MEDS ORDERED: Furosemide IV* 10 MG/ML VIAL (40 MG) IV ONE (10:28)
--- NOTE | 2018-04-23 11:31 | ECHO ---
Patient: IVONE PARK [facility] Rec#: [id number] : 1980 Date: 04/23/2018 Age: 38y Height: 170 cm / 66.9 in Weight: 104 kg / 229.2 lbs Sex: M BSA: 2.14 Room#: [id number] Admit Date#: 04/23/2018 Type: Inpatient Referring: Octavio Rojas Reading: Isma Andre MD Bodybuilder: Sondra Felder RDCS CC: Rudolph Harrison MD Transthoracic Echocardiogram Indication: Congestive heart failure, shortness of breath BP: 166/113 HR: 116 Rhythm: NSR with PVCs Findings History: HTN, HLD, smoker, CONNER. Technical Comments: The study was technically limited due to the patient's inability to lay in the left lateral decubitus position. Patient in upright seated position for this study due to breathing difficulty. Completed at 1110. Left Ventricle: The left ventricular chamber size is moderately dilated. Mild to moderate concentric left ventricular hypertrophy is observed. There is global hypokinesis of the left ventricle with minor regional variation. There is moderate to severely decreased left ventricular systolic function. The estimated ejection fraction is 30-35%. There is a left ventricular septal wall motion abnormality observed, possibly due to the presence of a left bundle branch block. The assessment of diastolic function is non-diagnostic. Left Atrium: The left atrium is mild to moderately dilated. Right Ventricle: Moderator Band present. The right ventricle is moderately dilated. The right ventricular global systolic function is moderately reduced. Right Atrium: The right atrium is moderately dilated. Aortic Valve: The aortic valve is trileaflet. There is no evidence of aortic valve thickening. There is no evidence of aortic regurgitation. There is no evidence of aortic stenosis. Mitral Valve: The mitral valve leaflets are mildly thickened. There is mild mitral regurgitation. There is no evidence of mitral stenosis. Tricuspid Valve: The tricuspid valve leaflets are normal. There is trace to mild tricuspid regurgitation. Unable to estimate the right ventricular systolic pressure. There is no tricuspid stenosis. Pulmonic Valve: The pulmonic valve appears normal. There is a trace pulmonic regurgitation. There is no pulmonic stenosis. Pericardium: There is no significant pericardial effusion. A pericardial fat pad is visualized. Aorta: There is no dilatation of the ascending aorta. The aortic arch is not well visualized. The aortic root is normal in size. Pulmonary Artery: The main pulmonary artery appears normal. Venous: The inferior vena cava appears normal in size. There is an approximate 50% respiratory change in the inferior vena cava dimension. Conclusions Mild to moderate concentric left ventricular hypertrophy is observed. There is global hypokinesis of the left ventricle with minor regional variation. There is moderate to severely decreased left ventricular systolic function. The estimated ejection fraction is 30-35%. There is a left ventricular septal wall motion abnormality observed, possibly due to the presence of a left bundle branch block. The right ventricular global systolic function is moderately reduced. There is no evidence of aortic stenosis. There is mild mitral regurgitation. There is trace to mild tricuspid regurgitation. Unable to estimate the right ventricular systolic pressure. There is no significant pericardial effusion. Compared to study of 09/18/17, the LV function is slightly lower. Measurements Name Value Normal Range RVIDd (AP) 2D 3.2 cm (0.9 - 2.6) RVDdMajor (2D) 5.1 cm (2.2 - 4.4) RAd ISD 4CH 5.5 cm (3.4 - 4.9) RA (A4C)W 5.8 cm (2.9 - 4.6) IVSd (2D) 1.2 cm (0.6 - 1) LVPWd (2D) 1.4 cm (0.6 - 1) LVIDd (2D) 6.1 cm (3.6 - 5.4) LVIDs (2D) 5.8 cm - LV FS (2D) 4 % (25 - 45) Aortic Annulus 2.2 cm (1.4 - 2.6) Ao root diameter (2D) 2.7 cm (2.1 - 3.5) Ascending Ao 2.8 cm (2.1 - 3.4) LA dimension (AP) 2D 5 cm (2.3 - 3.8) LAd ISD 4CH 6.7 cm (2.9 - 5.3) LA ISD 4CH W 5.9 cm (2.5 - 4.5) Name Value Normal Range LA ESV BP (A/L) index 40 ml/m2 - Name Value Normal Range MV E-wave Vmax 1 m/sec - MV deceleration time 131 msec - MV A-wave Vmax 0.5 m/sec - MV E:A ratio 2.1 ratio - LV septal e' Vmax 0.04 m/sec - LV lateral e' Vmax 0.09 m/sec - LV E:e' septal ratio 25 ratio - LV E:e' lateral ratio 11.1 ratio - Name Value Normal Range AV Vmax 1.6 m/sec - AV VTI 21 cm - AV peak gradient 10 mmHg - AV mean gradient 4 mmHg - LVOT Vmax 0.8 m/sec - LVOT VTI 13 cm - LVOT peak gradient 3 mmHg - LVOT mean gradient 2 mmHg - ANAND Vmax 0.7 m/sec - Name Value Normal Range IVC diameter 2.1 cm - Name Value Normal Range PV Vmax 1.2 m/sec - PV peak gradient 6 mmHg -
[2018-04-23 11:39] LABS: Urine Appearance Clear; Urine Bacteria Absent (Absent); Urine Bilirubin Negative (Negative); Urine Blood 1+ (Negative); Urine Color Straw; Urine Glucose Negative (Negative); Urine Ketones Negative (Negative); Urine Nitrite Negative (Negative); Urine Protein Negative (Negative); Urine Red Blood Cell Trace(0-2/hpf) (Absent); Urine Specific Gravity 1.006 (1.010-1.030); Urine Urobilinogen Negative (Negative); Urine White Blood Cell Trace(0-5/hpf) (Absent)
[2018-04-23] MEDS ORDERED: Zosyn per Pharmacy* NOTE FOLLOW UP SCH (12:00)
[2018-04-23] MEDS ORDERED: oxyCODONE/Acetamin 10/325(NF) TAB PO PRN (13:10)
[2018-04-23] MEDS: Insulin LISPRO* 1 UNITS UNIT SUBCUT SCH ×3 (13:12→22:16)
[2018-04-23] MEDS: Aspirin 81 mg CHEW TAB* 81 MG TAB.CHEW PO SCH (13:13)
[2018-04-23] MEDS: Spironolactone TAB* 25 MG PO SCH (13:13)
[2018-04-23] MEDS: Mometasone/Formoter 200/5 MDI INH SCH ×2 (13:27→20:26)
[2018-04-23] MEDS: ZOSYN 3.375 GM Q8H per EXTENDED INFUSION IVPB SCH ×4 (13:27→22:41)
--- NOTE | 2018-04-23 13:46 | HP ---
HISTORY AND PHYSICAL: DATE OF ADMISSION: 04/23/18 ADMITTING PROVIDER: Octavio Rojas MD PRIMARY CARE PROVIDER: Dr. Harrison. OUTPATIENT SPOUT POSITIONER: Dr. Andre. CHIEF COMPLAINT: Shortness of breath, productive cough, chest tightness, referred from side laster tack's office. HISTORY OF PRESENT ILLNESS: Robert Yarbrough is a 38-year-old male with a past medical history of HIV infection, on Tivicay and Descovy with reported last CD4 count in our system 881; nonischemic cardiomyopathy with ejection fraction 40% and clean coronary arteries on left heart cath 09/18/17; non- insulin-dependent diabetes mellitus; hypertension; obstructive sleep apnea; current smoker with 20-pack years; left bundle branch block. He has felt never quite back to his baseline since September 2017 admissions, first here for acute diastolic CHF exacerbation and then followed up at [facility] and was treated for potential pneumonia. He has followed up with Dr. Esqueda about 3 months ago [address] Dr. Andre just last week on the 04/17/18. He complains of nonproductive cough for a few months, but then got productive 2 days ago; does have chest tightness, extreme dyspnea with exertion, some bloating in his stomach for the last week. Denies any chest pain or lower extremity edema. He is orthopneic and that has worsened, cannot tell me his dry weight. He was then attending appointment with Dr. Zamudio for his first pulmonary consult today when he was referred to the emergency room. Here, he is found to be tachycardic in the 120s; temperature of 99.8, tachypneic to the 30s, leukocytosis of 14.3, CRP of 19, BNP of 490, and a chest x-ray concerning for pulmonary interstitial edema with consolidation of the right lower lung. He was given Levaquin, Zosyn, and started on a 3.1L sepsis fluid bolus but then that has since been stopped. He today attests that he has some right rib cage pain or tenderness from coughing so much and that his phlegm is now slightly pink colored. He does attest that he missed all of his medications the day prior to admission, but denies that this is a common occurrence. He denies any neck stiffness, headaches, rashes, abdominal pain, or nausea. He says his last A1c was approximately 6.3. He did not take any of his medications today yet. PAST MEDICAL HISTORY: HIV; nonischemic cardiomyopathy, ejection fraction 40%; noninsulin-dependent diabetes mellitus; current smoker, 20-pack years, currently 6 to 10 cigarettes a day; hyperlipidemia; anxiety; left bundle branch block. MEDICATIONS: Include: 1. Descovy 200/25 one tab p.o. daily. 2. Tivicay 50 mg daily. 3. Entresto 1 tab p.o. b.i.d. 4. Tradjenta 5 mg daily. 5. Spironolactone 25 mg daily. 6. Percocet 1 tab p.o. b.i.d. p.r.n. 7. Pravastatin 40 mg daily. 8. Lasix 40 mg p.o. daily. 9. Xanax 1 mg p.o. b.i.d. p.r.n. 10. Coreg 12.5 mg p.o. b.i.d. 11. Ventolin 2 puffs inhaled b.i.d. p.r.n. 12. Aspirin 81 mg daily. ALLERGIES: No known drug allergies. FAMILY HISTORY: His father had a heart attack at 51 and in his 60s of heart disease. Mother is alive, has a CVA. SOCIAL HISTORY: The patient works at [employer]. He currently smokes 6 to 10 cigarettes a day after cutting back from 1 pack per day. He smoked for 20 years. Denies alcohol or drug use. He desires to be a full code. His brother, Dada Yarbrough, is his medical surrogate. REVIEW OF SYSTEMS: Complete 14-point review of systems negative except as per HPI. PHYSICAL EXAMINATION GENERAL APPEARANCE: Hunched over the at side of emergency room bed, tachypneic , but in no acute distress. VITAL SIGNS: Temperature 99.7; heart rate 124; respiratory rate between 20 and 42; satting 89% on room air initially, current 93 on 2 liters; blood pressure 180/131, currently 166/113. HEENT: Normocephalic and atraumatic. Pupils are equal, round, and reactive to light. Extraocular motions intact. No scleral icterus. NECK: Supple. No cervical lymphadenopathy. LUNGS: Clear to auscultation bilaterally with no wheezing, rales, or rhonchi. CARDIOVASCULAR: Tachycardic. Regular with no murmurs, rubs, or gallops. ABDOMEN: Soft, distended, and nontender. No Bro sign. No guarding or rebound. EXTREMITIES: Warm and well perfused. 1+ pitting edema bilaterally. SKIN: No lesions or rashes. NEUROLOGIC: Cranial nerves II through XII intact. Moving all extremities. LABORATORY DATA: White count 14.3, hemoglobin 15.9, hematocrit 48, platelets 218. INR 0.98. Sodium 135, potassium 4.3, chloride 103, carbon dioxide 22, BUN 19, creatinine 1.10, glucose 159. Lactic acid 1.7. Total bili 0.8, AST 24, ALT 36, alk phos 47. Lactate dehydrogenase 254. Troponin 0.04. CRP 19.25. BNP 490. Albumin 4.3. Influenza A and B negative. Chest x-ray demonstrated cardiomegaly with pulmonary interstitial edema with consolidation of the right lower lung. EKG demonstrated tachycardia, left bundle branch block, heart rate 125, QTc 554. ASSESSMENT AND PLAN: Robert Yarbrough is a 38-year-old male with a past medical history of human immuno-deficiency virus with reportedly preserved CD4 count on Tivicay and Descovy; nonischemic cardiomyopathy, ejection fraction 40% , last followup with Dr. Andre just last week; has been noncompliant with his medication over the last day; had been feeling short of breath and dyspneic on exertion with abdominal bloating worse over the last week, additionally the productive cough, evidence of possible right lower lobe consolidation and leukocytosis; presenting with acute hypoxic respiratory failure, tachypnea. This is thought secondary to acute combined systolic and diastolic congestive heart failure exacerbation likely in the setting of tachyarrhythmia and right lower lobe pneumonia. We will continue the Zosyn. Check daily weights, strict Is and Os. Continue with 40mg of IV Lasix now, probably repeat twice daily. He is getting an echocardiogram right now, last was in September. His blood pressure is poorly controlled. Continue his Coreg, spironolactone, Entresto, and we will be diuresing him. Adding on a urine Strep pneumoniae and legionella urine antigen test, sputum cultures, followup blood cultures, CBC, BMP daily. His LDH is within normal limits. Submit [id number] serum though I have low suspicion of PCP. chest x-ray will be difficult to exclude. He does have some chronic shortness of breath. Obtain outpatient records from [facility] in [place] who manages his HIV medications. He is a full code. Eat a carbohydrate heart healthy diet. Will trend troponins, elevated likely in the setting of demand ischemia, denies any chest pain. Continue telemetry. Medical surrogate is his brother, Dada Yarbrough. Consideration for ID consultation depending on clinical course. [id number]/[facility] #: [id number] CATRINA
[2018-04-23] MEDS: oxyCODONE/Acetamin 5/325 MG* TAB PO SCH ×2 (14:21→22:15)
[2018-04-23] MEDS: oxyCODONE TAB* 5 MG TAB PO SCH ×2 (14:22→22:15)
[2018-04-23] MEDS: DOLUTEGRAVIR 50 MG PO SCH (14:50)
[2018-04-23] MEDS: VALSARTAN PO SCH ×2 (14:51→22:14)
[2018-04-23] MEDS: TENOFOVIR PO SCH (14:51)
[2018-04-23] MEDS: SACUBITRIL PO SCH ×2 (14:51→22:14)
[2018-04-23] MEDS: EMTRICITABINE PO SCH (14:51)
[2018-04-23] MEDS: Carvedilol TAB* 6.25 MG PO SCH (22:14)
[2018-04-24] MEDS: ZOSYN 3.375 GM Q8H per EXTENDED INFUSION IVPB SCH ×6 (04:23→21:28)
[2018-04-24 05:53] LABS: ABS Basophils 0.1 10^3/ul (0-0.2); ABS Eosinophils 0.3 10^3/ul (0-0.6); ABS Lymphocytes 1.6 10^3/ul (1.0-4.8); ABS Monocytes 1.1 10^3/ul (0-0.8); ABS Neutrophils 7.5 10^3/ul (1.5-7.7); ABS Nucleated RBC 0 10^3/ul; Eosinophil % 2.4 %; Hematocrit 46 % (42-52); Hemoglobin 15.2 g/dl (14.0-18.0); Lymphocyte % 15.4 %; Mean Corpuscular HGB Conc 33 g/dl (31-36); Mean Corpuscular Hemoglobin 29 pg (27-31); Mean Corpuscular Volume 88 fL (80-94); Mean Platelet Volume 8.3 fL (7.4-10.4); Nucleated Red Blood Cells % 0.1; Platelet Count 188 10^3/ul (150-450); Red Blood Count 5.21 10^6/ul (4.00-5.40); Red Cell Distribution Width 16 % (10.5-15); White Blood Count 10.6 10^3/ul (3.5-10.8)
[2018-04-24 06:09] LABS: BUN/Creatinine Ratio 14.3 (8-20); EGFR African American 94.7 (>60); EGFR Non-African American 78.2 (>60)
[2018-04-24] MEDS: Insulin LISPRO* 1 UNITS UNIT SUBCUT SCH ×4 (08:19→21:24)
[2018-04-24] MEDS ORDERED: Nicotine Inhaler* 10 MG AMP INH PRN (09:19)
[2018-04-24] MEDS ORDERED: Mouth Piece, Nicotine* 1 EACH CARTRIDGE INH PRN (09:23)
[2018-04-24] MEDS: Mometasone/Formoter 200/5 MDI INH SCH ×2 (09:41→19:42)
[2018-04-24] MEDS: Aspirin 81 mg CHEW TAB* 81 MG TAB.CHEW PO SCH (09:57)
[2018-04-24] MEDS: Spironolactone TAB* 25 MG PO SCH (09:57)
[2018-04-24] MEDS: oxyCODONE/Acetamin 5/325 MG* TAB PO SCH ×3 (09:58→21:23)
[2018-04-24] MEDS: oxyCODONE TAB* 5 MG TAB PO SCH ×3 (09:59→21:23)
[2018-04-24] MEDS: Carvedilol TAB* 6.25 MG PO SCH ×2 (10:00→21:24)
[2018-04-24] MEDS: SACUBITRIL PO SCH ×2 (10:01→21:28)
[2018-04-24] MEDS: Furosemide IV* 10 MG/ML 10 ML VIAL (100 MG) IV SCH ×2 (10:01→17:31)
[2018-04-24] MEDS: VALSARTAN PO SCH ×2 (10:01→21:28)
[2018-04-24] MEDS: DOLUTEGRAVIR 50 MG PO SCH (14:10)
[2018-04-24] MEDS: EMTRICITABINE PO SCH (14:10)
[2018-04-24] MEDS: TENOFOVIR PO SCH (14:10)
--- NOTE | 2018-04-24 16:26 | PN ---
Subjective Date of Service: 04/24/18 Interval History: Patient is feeling better today, patient states SOB with exertion is much improved. Patient notices the most improvement with diuresis. Patient is still needing oxygen intermittently. Patient has minor LE edema which he states is at his baseline. Patient denies CP, F/C, N/V, abdominal pain, dysuria, presyncope, or other pain. Family History: Unchanged from Admission Social History: Unchanged from Admission Past Medical History: Unchanged from Admission Objective Active Medications: Albuterol (Ventolin Hfa Inhaler*) 2 puff INH BID PRN PRN Reason: SOB/WHEEZING Aspirin (Aspirin 81 Mg Chew Tab*) 81 mg PO DAILY [facility] Last Admin: 04/24/18 09:57 Dose: 81 mg Carvedilol (Coreg Tab*) 12.5 mg PO BID [facility] Last Admin: 04/24/18 10:00 Dose: 12.5 mg Device (Nicotine Mouth Piece*) 1 each INH Q2H PRN PRN Reason: CRAVINGS Last Admin: 04/24/18 11:09 Dose: 1 each Dextrose (D50w Syringe 50 Ml*) 12.5 gm IV PUSH .FOR FS < 60 - SS PRN PRN Reason: FS < 60 Dolutegravir Sodium (Tivicay (Nf)) 50 mg PO 1400 [facility] Last Admin: 04/24/18 14:10 Dose: 50 mg Emtricitabine/Tenofovir (Descovy (Nf)) 1 tab PO 1400 [facility] Last Admin: 04/24/18 14:10 Dose: 1 tab Furosemide (Lasix Iv*) 40 mg IV 0800,1700 [facility] Last Admin: 04/24/18 10:01 Dose: 40 mg Piperacillin Sod/Tazobactam (Sod 3.375 gm/ Sodium Chloride) 100 mls @ 25 mls/ hr IVPB Q8H [facility] Last Admin: 04/24/18 14:02 Dose: 25 mls/hr Insulin Human Lispro (Humalog*) 0 units SUBCUT ACHS [facility]; Protocol Last Admin: 04/24/18 13:52 Dose: Not Given Mometasone Furoate/Formoterol Fumar (Dulera 200/5 Mdi*) 2 puff INH BID [facility] Last Admin: 04/24/18 09:41 Dose: 2 puff Nicotine (Nicotine Inhaler*) 10 mg INH Q2H PRN PRN Reason: CRAVING Last Admin: 04/24/18 11:09 Dose: 10 mg Oxycodone HCl (Roxycodone Tab*) 5 mg PO TID [facility] Last Admin: 04/24/18 14:03 Dose: 5 mg Oxycodone/Acetaminophen (Percocet 5/325 Tab*) 1 tab PO TID [facility] Last Admin: 04/24/18 14:03 Dose: 1 tab Pharmacy Consult (Zosyn Per Pharmacy*) 1 note FOLLOW UP .ZOSYN PER PHARMACY [facility] Sacubitril/Valsartan (Entresto 49/51(Nf)) 1 tab PO BID [facility] Last Admin: 04/24/18 10:01 Dose: 1 tab Spironolactone (Aldactone Tab*) 25 mg PO DAILY [facility] Last Admin: 04/24/18 09:57 Dose: 25 mg Vital Signs - 8 hr 04/24/18 04/24/18 04/24/18 09:58 09:59 11:44 Temperature 97.6 F Pulse Rate 95 Respiratory 19 19 18 Rate Blood Pressure 134/73 (mmHg) O2 Sat by Pulse 95 Oximetry 04/24/18 14:03 Temperature Pulse Rate Respiratory 16 Rate Blood Pressure (mmHg) O2 Sat by Pulse Oximetry Oxygen Devices in Use Now: Nasal Cannula Appearance: Patient is a 38yo male who appears stated age and is sitting in the bed in [facility]. Eyes: No Scleral Icterus, PERRLA Ears/Nose/Mouth/Throat: NL Teeth, Lips, Gums, Clear Oropharnyx, Mucous Membranes Moist Neck: NL Appearance and Movements; NL JVP, Trachea Midline Respiratory: Symmetrical Chest Expansion and Respiratory Effort, Clear to Auscultation Cardiovascular: NL Sounds; No Murmurs; No JVD, RRR, - - Trace B/L LE edema. Abdominal: NL Sounds; No Tenderness; No Distention, No Hepatosplenomegaly Lymphatic: No Cervical Adenopathy Extremities: No Edema, No Clubbing, Cyanosis Skin: No Rash or Ulcers, No Nodules or Sclerosis Neurological: Alert and Oriented x 3, NL Sensation, NL Muscle Strength and Tone , - - CN II-XII intact. Result Diagrams: 04/24/18 05:34 04/24/18 05:34 Microbiology and Other Data: Microbiology 04/23/18 11:14 Urine Culture - Final Urine No Growth (<1,000 CFU/mL) 04/23/18 08:10 Aerobic Blood Culture - Preliminary Blood Venous No Growth Day 1 Anaerobic Blood Culture - Preliminary No Growth Day 1 04/23/18 08:09 Aerobic Blood Culture - Preliminary Blood Venous No Growth Day 1 Anaerobic Blood Culture - Preliminary No Growth Day 1 04/23/18 11:14 Legionella Urinary Antigen - Final Urine Negative Legionella Antigen Streptococcus pneumoniae Ag Screen - Final Negative S. pneumo Antigen 04/23/18 08:09 Influenza Types A,B Antigen - Final Nasal Specimen received for Influenza A/B Molecular testing Assess/Plan/Problems-Billing Assessment: Patient is a 38yo male with a PMH for HIV on HAART, NICM, HFrEF, who presents with sepsis, fever, and severe ALARCON with CXR findings consistent with lobar pneumonia and CHF who is being treated with IV antibiotics and diuresis. - Patient Problems (1) CAP (community acquired pneumonia) Current Visit: Yes Status: Acute Code(s): J18.9 - PNEUMONIA, UNSPECIFIED ORGANISM SNOMED Code(s): 962625069 Comment: - Lobar consolidation with hypoxia, tachycardia, and low grade fever - Continue Zosyn, is improving - Urine antigens negative. - Wean O2 - Associated sepsis (2) HFrEF (heart failure with reduced ejection fraction) Current Visit: Yes Status: Acute Code(s): I50.20 - UNSPECIFIED SYSTOLIC ( CONGESTIVE) HEART FAILURE SNOMED Code(s): 796311598 Comment: - EF 30-35%, decreased from 40-45% - IV lasix 40mg BID - Strict I/O and daily weights - Subjectively improving, does not know dry weight. (3) DM2 (diabetes mellitus, type 2) Current Visit: No Status: Acute Comment: - Cont SSI - Moderate control. - Resume oral meds at D/C (4) Dyslipidemia Current Visit: No Status: Acute Code(s): E78.5 - HYPERLIPIDEMIA, UNSPECIFIED SNOMED Code(s): 852013244 Comment: - No signficant CAD on Cath, Continue Statin. (5) HTN (hypertension) Current Visit: No Status: Acute Code(s): I10 - ESSENTIAL (PRIMARY) HYPERTENSION SNOMED Code(s): 34511943 Comment: - Normotensive, continue HF meds (6) HIV (human immunodeficiency virus infection) Current Visit: No Status: Acute Comment: - Continue Truvada and Dolutgravir - CD4 count pending (7) DVT prophylaxis Current Visit: No Status: Acute Code(s): FQW2341 - SNOMED Code(s): 532184333 Comment: - low risk, ambulation Status and Disposition: Inpatient, hopeful discharge tomorrow.
[2018-04-25] MEDS: ZOSYN 3.375 GM Q8H per EXTENDED INFUSION IVPB SCH ×2 (06:01)
[2018-04-25 06:23] LABS: ABS Basophils 0.1 10^3/ul (0-0.2); ABS Eosinophils 0.3 10^3/ul (0-0.6); ABS Lymphocytes 1.8 10^3/ul (1.0-4.8); ABS Neutrophils 5.6 10^3/ul (1.5-7.7); ABS Nucleated RBC 0 10^3/ul; Eosinophil % 3.8 %; Hematocrit 47 % (42-52); Hemoglobin 15.4 g/dl (14.0-18.0); Lymphocyte % 20.3 %; Mean Corpuscular HGB Conc 33 g/dl (31-36); Mean Corpuscular Hemoglobin 29 pg (27-31); Mean Corpuscular Volume 88 fL (80-94); Mean Platelet Volume 8.5 fL (7.4-10.4); Nucleated Red Blood Cells % 0; Platelet Count 204 10^3/ul (150-450); Red Blood Count 5.33 10^6/ul (4.00-5.40); Red Cell Distribution Width 16 % (10.5-15); White Blood Count 8.7 10^3/ul (3.5-10.8)
[2018-04-25 06:47] LABS: BUN/Creatinine Ratio 19.2 (8-20); Calcium 9.2 mg/dL (8.6-10.3); EGFR African American 101.3 (>60); EGFR Non-African American 83.7 (>60); Magnesium 2.3 mg/dL (1.9-2.7); Potassium 3.7 mmol/L (3.5-5.0)
[2018-04-25 07:33] VITALS: BP 136/83
[2018-04-25] MEDS: Insulin LISPRO* 1 UNITS UNIT SUBCUT SCH (07:48)
[2018-04-25] MEDS: Carvedilol TAB* 6.25 MG PO SCH (08:04)
[2018-04-25] MEDS: Spironolactone TAB* 25 MG PO SCH (08:04)
[2018-04-25] MEDS: Aspirin 81 mg CHEW TAB* 81 MG TAB.CHEW PO SCH (08:04)
[2018-04-25] MEDS: oxyCODONE/Acetamin 5/325 MG* TAB PO SCH (08:05)
[2018-04-25] MEDS: oxyCODONE TAB* 5 MG TAB PO SCH (08:07)
[2018-04-25] MEDS: SACUBITRIL PO SCH (08:09)
[2018-04-25] MEDS: VALSARTAN PO SCH (08:09)
[2018-04-25] MEDS: Furosemide IV* 10 MG/ML 10 ML VIAL (100 MG) IV SCH (08:17)
[2018-04-25] MEDS: Mometasone/Formoter 200/5 MDI INH SCH (08:49)
--- NOTE | 2018-04-25 22:36 | DS ---
CC: Dr. Harrison * DISCHARGE SUMMARY: DATE OF ADMISSION: 04/23/18 DATE OF DISCHARGE: 04/25/18 PRIMARY CARE PROVIDER: Dr. Harrison. MY ATTENDING WHILE IN THE HOSPITAL: Dr. Renee Bah.* (DICTATED BY PAULO MG) PRIMARY DISCHARGE DIAGNOSES: 1. Congestive heart failure. 2. Acute exacerbation of systolic heart failure. Most recent ejection fraction 30% to 35%. 3. Community acquired pneumonia. SECONDARY DISCHARGE DIAGNOSES: 1. Human immunodeficiency virus positive. 2. Type 2 diabetes mellitus. 3. Anxiety. 4. Hyperlipidemia. 5. Left bundle branch block. STUDIES DONE WHILE IN THE HOSPITAL: Chest x-ray from 04/23/18 read as cardiomegaly with pulmonary interstitial edema with consolidation of right lower lobe. Transthoracic echocardiogram from 04/23/18 shows mild to moderate concentric left ventricular hypertrophy, global hypokinesis, left ventricle with mild variation with marked to severely reduced left ventricular systolic function. Estimated ejection fraction of 30% to 35%. There is a left ventricular septal wall motion abnormality, positive presence of left bundle branch block. Right ventricular systolic function is mildly reduced. There is no evidence of aortic stenosis, mild atrial regurgitation, trace tricuspid regurgitation. Unable to estimate right ventricular systolic pressure. No significant pericardial effusion. Compared to study of 09/18/17, LV function is slightly lower. Chest x-ray from 04/24/18 read as persisting cardiomegaly, CHF. MEDICATIONS AT DISCHARGE: 1. Xanax 1 mg p.o. b.i.d. as needed. 2. Tivicay 50 mg p.o. daily. 3. Percocet 10/325 one tab p.o. t.i.d. 4. Albuterol 2 puff inhalation b.i.d. as needed. 5. Aspirin 81 mg p.o. daily. 6. Carvedilol 12.5 mg p.o. b.i.d. 7. Tradjenta 5 mg p.o. daily. 8. Entresto 49/51 one tab p.o. b.i.d. 9. Spironolactone 25 mg p.o. daily. 10. Pravastatin 40 mg p.o. daily. 11. Furosemide 40 mg p.o. b.i.d. for 1 week, then 40 mg p.o. daily. 12. Descovy 200/25 one tab p.o. daily. 13. Augmentin 875 mg p.o. b.i.d. x23. 14. Nicotine inhaler 10 mg inhalation q.2 hours as needed. HOSPITAL COURSE: This is a brief summary of the patient's presentation. For more details, please see the history and physical from Dr. Octavio Rojas on . In brief, the patient is a 38-year-old male with past medical history significant for the above who presents to the emergency department with shortness of breath for several days with extreme dyspnea on exertion, chest tightness, and bloating. Patient did not weigh himself at home. Patient in the emergency department was septic with likely source of pneumonia. Patient was started on Zosyn, was given parts of a fluid bolus for his sepsis which was stopped due to active CHF. Patient started on Lasix 40 mg p.o. b.i.d., given antibiotics. Patient felt much better, particularly with the diuresis. The patient diuresed well. Patient's urine antigens came back negative. Patient's blood cultures came back negative. Patient's vital signs normalized quickly. Patient did not have good intake and output while he was in the hospital. Patient's weight on the day of discharge was 250 pounds, which is slightly increased from 244 when he was here in September of last year, which is his last known non-estimated weight. Patient, however, made large amounts of urine per his report. Patient's vital signs stayed stable. Patient was able to ambulate around the unit without any shortness of breath. Patient initially on 2 L of oxygen and slowly tapered down to room air with excellent saturations. Patient was stable, eager, and amenable for discharge on 04/25/18. PHYSICAL EXAM ON THE DAY OF DISCHARGE: General: The patient is a 38-year-old male who appears stated age sitting comfortably in bed in no acute distress. Vital Signs: Temperature 98.6, pulse 118, respiratory rate 18, oxygen saturation 96% on room air, blood pressure 136/83. HEENT: Head normocephalic, atraumatic. Sclerae anicteric. No conjunctival injection. Nasal mucosa moist. Oral mucosa moist. No pharyngeal erythema, discharge, or exudate. Neck : Supple, nontender. No lymphadenopathy. No carotid bruits auscultated. No JVD. Cardiac: Regular rate and rhythm. No other clicks, murmurs, gallops, or rubs. Pulses are 2+ in the bilateral dorsalis pedis, posterior tibialis, and radial areas. Trace bilateral lower extremity edema. Respiratory: Clear to auscultation bilaterally. No wheezes, rales, or rhonchi. Good air exchange bilaterally. Abdomen: Soft, nontender, nondistended. Bowel sounds present in all 4 quadrants. No hepatosplenomegaly. No abdominal bruits auscultated, no hepatojugular reflux. Genitourinary: No suprapubic or CVA tenderness. Skin: Clean, dry, intact. No rash. Neuro: Cranial nerves II through XII intact. No focal deficits. Alert and oriented x3. Psychiatric: Pleasant and cooperative. DISCHARGE PLAN: The patient will be discharged to home. Patient should follow up with his primary care provider in 1 week for general medical management. The patient should follow up with HIV specialist for routine management. Patient had a CD4 count sent while in the hospital, which is still at this time pending. Patient should continue taking Augmentin for a total of 2-week course. Patient is to return to the hospital for alarming symptoms such as passing out, chest pain, severe shortness of breath. Patient will have Lasix orally 40 mg p.o. twice daily for 1 week and will resume his normal dose of 40 mg p.o. daily. Patient should weigh himself frequently and report weight loss or weight gain of greater than 5 pounds to his primary care provider or sample maker original. Patient should follow up with sample maker original routinely. Patient should engage in activities as tolerated and have heart healthy diet without caffeine. TIME SPENT: Approximately 60 minutes were spent on the discharge of the patient , 30 of which was spent in [id number] with the patient obtaining history and physical and discussing treatment plan. PAULO MG [id number]/[facility] #: [id number] MTDD
[2018-04-26 12:19] LABS: 4/8 H/S Ratio 0.8 (>=0.9); CD3 1195 cells/mcL (550-2202); CD4 523 cells/mcL (365-1437); CD8 655 cells/mcL (145-846)
== END 2018-04-25 11:30 | disposition home or self-care (01) | DRG 720 ==
LOC: ED 06:53 → MEDTELE 10:20
PROVIDERS: ADMIT Internal Medicine; ATTEND Internal Medicine
DX: A41.9 Sepsis, unspecified organism (principal); J18.1 Lobar pneumonia, unspecified organism; I50.43 Acute on chronic combined systolic (congestive) and diastolic (congestive) heart failure; J96.01 Acute respiratory failure with hypoxia; I42.8 Other cardiomyopathies; I11.0 Hypertensive heart disease with heart failure; E78.5 Hyperlipidemia, unspecified; J45.909 Unspecified asthma, uncomplicated; K58.9 Irritable bowel syndrome, unspecified; F41.9 Anxiety disorder, unspecified; F32.9 Major depressive disorder, single episode, unspecified; F17.210 Nicotine dependence, cigarettes, uncomplicated; E11.9 Type 2 diabetes mellitus without complications; E66.9 Obesity, unspecified; I44.7 Left bundle-branch block, unspecified; R74.8 Abnormal levels of other serum enzymes; I08.0 Rheumatic disorders of both mitral and aortic valves; G47.33 Obstructive sleep apnea (adult) (pediatric); Z21 Asymptomatic human immunodeficiency virus [HIV] infection status; Z87.01 Personal history of pneumonia (recurrent); Z82.49 Family history of ischemic heart disease and other diseases of the circulatory system; Z72.89 Other problems related to lifestyle; Z68.39 Body mass index [BMI] 39.0-39.9, adult; Z82.3 Family history of stroke; Z91.14 Patient's other noncompliance with medication regimen; Z79.82 Long term (current) use of aspirin
CPT/HCPCS: 36415; 71045; 71046; 80048; 80053; 81003; 81015; 83605; 83615; 83735; 83880; 84484; 85025; 85610; 85652; 85730; 86140; 86359; 86360; 87040; 87086; 87899; 93005; 93306; 94640; 99283; A9270-GY; J1940; J2543

== ENCOUNTER 2018-08-10 13:41 | Emergency (ER) | payer BC ==
[2018-08-10 14:01] VITALS: BP 140/106
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
== END 2018-08-10 14:43 | disposition home or self-care (01) ==
LOC: UCEAST 13:41
DX: J18.0 Bronchopneumonia, unspecified organism (principal); E11.9 Type 2 diabetes mellitus without complications; I10 Essential (primary) hypertension; J44.9 Chronic obstructive pulmonary disease, unspecified; Z87.891 Personal history of nicotine dependence
CPT/HCPCS: 71046; 99212; G0463

== ENCOUNTER 2018-08-14 06:58 | Inpatient (IN) | payer BC ==
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
[2018-08-14 07:54] LABS: ABS Basophils 0.1 10^3/ul (0-0.2); ABS Eosinophils 0.1 10^3/ul (0-0.6); ABS Lymphocytes 1.3 10^3/ul (1.0-4.8); ABS Monocytes 1.2 10^3/ul (0-0.8); ABS Neutrophils 13.5 10^3/ul (1.5-7.7); Eosinophil % 0.8 %; Hematocrit 48 % (42-52); Hemoglobin 15.7 g/dL (14.0-18.0); Mean Corpuscular HGB Conc 33 g/dL (31-36); Mean Corpuscular Hemoglobin 29 pg (27-31); Mean Corpuscular Volume 87 fL (80-94); Mean Platelet Volume 8.7 fL (7.4-10.4); Platelet Count 204 10^3/uL (150-450); Red Blood Count 5.44 10^6 /uL (4.18-5.48); Red Cell Distribution Width 15 % (10.5-15); White Blood Count 16.2 10^3/uL (3.5-10.8)
[2018-08-14 08:17] LABS: ALT 41 U/L (7-52); AST 28 U/L (13-39); Albumin 4.3 g/dL (3.2-5.2); Albumin/Globulin Ratio 1.3 (1-3); Alkaline Phosphatase 46 U/L (34-104); Anion Gap 9 mmol/L (2-11); BUN/Creatinine Ratio 17.1 (8-20); Blood Urea Nitrogen 19 mg/dL (6-24); CO2 Carbon Dioxide 23 mmol/L (22-32); Calcium 9.5 mg/dL (8.6-10.3); Chloride 106 mmol/L (101-111); EGFR African American 88.8 (>60); EGFR Non-African American 73.4 (>60); Globulin 3.2 g/dL (2-4); Glucose 147 mg/dL (70-100); Potassium 4.3 mmol/L (3.5-5.0); Sodium 138 mmol/L (135-145); Total Protein 7.5 g/dL (6.4-8.9)
[2018-08-14 08:23] LABS: Troponin I 0.04 ng/mL (<0.04)
[2018-08-14 08:48] LABS: Activated Partial Thrombo Time 32.5 seconds (26.0-38.0); INR 1.27 (0.82-1.09)
[2018-08-14 08:57] LABS: Urine Appearance Clear; Urine Bacteria Absent (Absent); Urine Bilirubin Negative (Negative); Urine Blood Negative (Negative); Urine Color Yellow; Urine Glucose Negative (Negative); Urine Ketones Negative (Negative); Urine Nitrite Negative (Negative); Urine Protein 2+(100 mg/dL) (Negative); Urine Red Blood Cell 1+(3-5/hpf) (Absent); Urine Specific Gravity 1.026 (1.010-1.030); Urine Urobilinogen Negative (Negative); Urine White Blood Cell Trace(0-5/hpf) (Absent)
[2018-08-14] MEDS ORDERED: ED cefTRIAXone 1 GM/50 ML 1 GM/50 ML PREMIX.SET IVPB ONE (09:01)
[2018-08-14] MEDS ORDERED: Azithromycin 500 mg/250 ml NS 500 MG/250 ML BAG IVPB ONE (09:01)
[2018-08-14] MEDS ORDERED: Vancomycin(*) 2,000 MG in NS 0.9% 250 ML* 250 ML IVPB ONE (09:01)
[2018-08-14] MEDS ORDERED: cefTRIAXone(*) 1 GM ADVAN/BAG ONE (09:07)
[2018-08-14] MEDS ORDERED: Vancomycin(*) 2,000 MG in NS 0.9% 500 ML* 500 ML IVPB ONE (09:30)
[2018-08-14] MEDS ORDERED: ALPRAZolam TAB* 0.5 MG PO PRN (10:24)
[2018-08-14] MEDS ORDERED: Nicotine Lozenge* mini 2 MG LOZNG.MINI MT PRN (10:24)
[2018-08-14] MEDS ORDERED: Nicotine* 2MG (FRUIT FLAVOR) GUM PO PRN (10:24)
[2018-08-14] MEDS ORDERED: Dextrose 50% Syringe 50 ML* 25 GM/50 ML SYRINGE IV PUSH PRN (10:28)
[2018-08-14] MEDS ORDERED: Iodixanol* (CONTRAST) 320 MG/ML 100 ML SDV IV ONE (10:34)
[2018-08-14] MEDS ORDERED: Piperacillin/Tazobac ADVAN(*) 3.375 GM in NS 0.9% 100 ML* 100 ML IVPB ONE (11:03)
[2018-08-14] MEDS: oxyCODONE/Acetamin 5/325 MG* TAB PO PRN ×2 (11:53→20:22)
[2018-08-14] MEDS ORDERED: Vancomycin(*) 0 MG in NS 0.9% 250 ML* 250 ML IVPB SCH (12:00)
[2018-08-14] MEDS ORDERED: Zosyn per Pharmacy* NOTE FOLLOW UP SCH (12:00)
[2018-08-14] MEDS: Insulin LISPRO* 1 UNITS UNIT SUBCUT SCH ×3 (12:16→20:21)
[2018-08-14] MEDS ORDERED: Vancomycin per Pharmacy* NOTE FOLLOW UP PRN (13:01)
--- NOTE | 2018-08-14 13:02 | HP ---
HISTORY AND PHYSICAL: DATE OF ADMISSION: 08/14/18 TIME OF ADMISSION: 10:30 a.m. PRIMARY CARE PHYSICIAN: Dr. Harrison. CRYOGENICS ENGINEER: Dr. Andre. PROGRAM INSTRUCTOR: Dr. Zamudio. HIV SPECIALIST: Morgan Ceballos NP CHIEF COMPLAINT: Cough. HISTORY OF PRESENT ILLNESS: This is a 38-year-old man with history of HIV and nonischemic cardiomyopathy, who presents to the emergency department with worsening cough, shortness of breath, and hemoptysis despite being on outpatient antibiotics for pneumonia. His symptoms first began 8 days ago with fatigue and worsening shortness of breath from baseline and then a cough began on 08/10/18, so he went to urgent care. He was found to have pneumonia on chest x-ray and was started on levofloxacin. He has been taking this as ordered ; however, his symptoms have gotten worse and this morning he noted a choking sensation at work, so he came to the emergency department. He has not had any fevers and he is not sure if he has been around sick contacts as he works with the public daily. He has not had any recent travel. Of note, he has had pneumonia twice already in the past year and has been following with Pulmonology for baseline dyspnea. He also notes recent weight gain. He quit smoking cigarettes 30 days ago and admits he has been eating a lot more snacks and salty foods than usual. He is not sure how much weight he has gained, but notes abdominal distention and bloating. He also complains of waking up at night very short of breath, and gasping for air and periods of what he feels like a panic attack that come on randomly during the day and occasionally are associated with exertion, but not always. His workup for dyspnea on exertion has included PFTs and chest CT, which have been largely unrevealing other than showing a mild restrictive pattern. Of note , he also has obstructive sleep apnea and has been unable to tolerate CPAP. PAST MEDICAL HISTORY: 1. Type 2 diabetes. 2. Nonischemic cardiomyopathy with an ejection fraction of 30% to 35%, a left heart cath in September 2017 was negative. 3. HIV. He believes his last CD4 count was approximately a month ago and was over 700 and his viral load was undetectable. He has never had a CD4 count less than 200. 4. Hypertension. 5. Peripheral neuropathy. HOME MEDICATIONS: 1. Xanax 1 mg b.i.d. p.r.n. 2. Tivicay 50 mg daily. 3. Percocet 10/325 t.i.d. p.r.n. pain. 4. Albuterol 2 puffs inhaled b.i.d. p.r.n. 5. Aspirin 81 mg daily. 6. Coreg 12.5 mg b.i.d. 7. Tradjenta 5 mg daily. 8. Entresto 1 tab b.i.d. 9. Spironolactone 25 mg daily. 10. Pravastatin 40 mg daily. 11. Lasix 40 mg daily. 12. Descovy 200/25 one tab daily. 13. Levaquin 500 mg daily. HEALTHCARE PROXY AND EMERGENCY CONTACT: His brother Dada. FAMILY HISTORY: Significant for heart disease in his dad and his mom had a CVA. 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 He quit smoking cigarettes 30 days ago, but then had 1 last night. He drinks no alcohol and uses no illicit drugs. REVIEW OF SYSTEMS: As per the HPI. Remainder of the 14-point review of systems is negative. PHYSICAL EXAMINATION GENERAL: Alert, ill-appearing young man, in mild respiratory distress. He is able to speak in full sentences, but he is tachypneic. I was able to lie him down completely flat without any respiratory distress. VITAL SIGNS: Temperature 99.2, heart rate 117, respiratory rate 16, pulse ox 96 % on room air, blood pressure 131/100. HEENT: Pupils equal, round, and reactive to light. No conjunctival injection or discharge. No sinus tenderness. No pharyngeal exudate or erythema. Oral mucosa is moist. Both tympanic membranes are clear without erythema. NECK: I cannot appreciate JVP, but he has a difficult exam. CHEST: He is tachycardic with no murmurs. LUNGS: Few scattered rhonchi, but largely clear lung weiss with good air movement. ABDOMEN: Obese. I cannot appreciate a fluid wave. His liver is palpable at the costal margin. It is nontender to palpation and dull to percussion. No CVA tenderness. EXTREMITIES: Trace lower extremity edema bilaterally. NEUROLOGIC: He is alert and oriented and his affect is appropriate. His strength is 5/5 in all extremities. DIAGNOSTIC STUDIES/LAB DATA: White blood cell 16.2, hemoglobin 15.7, and platelets 204. No bandemia is noted. INR 1.27. Sodium 138, potassium 4.3, chloride 106, bicarb 23, BUN 19, creatinine 1.11, glucose 147, lactic acid 1.1. Total bilirubin 0.9, AST 28, ALT 41, alk phos 46. Troponin 0.04. BNP over 1300. Urinalysis has +2 protein and 1+ rbc's. Imaging: A chest x-ray shows progression of multifocal airspace disease with development of the component of interstitial edema. EKG: Sinus tachycardia at 1:15, normal axis, left bundle-branch block, which is old. ASSESSMENT AND PLAN: This is a 38-year-old man with history of a nonischemic cardiomyopathy, human immunodeficiency virus, untreated obstructive sleep apnea , and pneumonia twice in the last year, who presents with cough and shortness of breath and was found to have pneumonia again. 1. Sepsis with a pulmonary source. He has received vancomycin, azithromycin, and ceftriaxone in the emergency department and blood cultures have been sent. He has not received IV fluid resuscitation and I agree with his plan as he is also in decompensated heart failure and he is hemodynamically stable. His lactic acid is 1.1. I am ordering sputum culture and will continue broad- spectrum antibiotics with vancomycin and Zosyn. 2. Acute on chronic systolic heart failure. I suspect his recent tobacco abstinence and increase in snacking and salty foods has caused decompensated heart failure and likely explains his recent symptoms of paroxysmal nocturnal dyspnea, dyspnea on exertion, and orthopnea. Given his current sepsis, I will hold off on IV diuresis, especially since he has no current oxygen requirement and I am continuing his beta-genaro and Entresto since he is hemodynamically stable. 3. Recurrent pneumonia. His microdata from the past few years is unremarkable and it is suspicious that he is getting recurrent pneumonia when his CD4 count is over 700. The presence of hemoptysis in combination with proteinuria and rbc 's in his urine raised the question of vasculitis and I am also keeping idiopathic interstitial pneumonia on my differential to work these things up, I am checking a CT chest and ANCA. Depending on what the CT chest shows, I may consult either Pulmonology or Infectious Diseases. It is also possible that he has a secondary immune deficiency; however, I think this is unlikely given the age of presentation and he reports a previously heathy childhood and adulthood until a year ago. 4. Hemoptysis. I suspect this is related to either the pneumonia or the pulmonary edema; however, given the presence of tachycardia, I am also adding contrast to the CAT scan to rule out a pulmonary embolism. I am holding his aspirin and DVT prophylaxis. His hemoglobin remained stable. 5. Coagulopathy. This may be a reflection of sepsis versus liver disease. His LFTs are unremarkable; however, he may have some passive congestion versus poor vitamin K intake or absorption. I will hold off on vitamin K repletion now ; however, if his hemoptysis worsens or his hemoglobin drops, I would consider vitamin K repletion. 6. Type 2 diabetes. I am putting him on a carb controlled diet and fingersticks with lispro coverage. 7. DVT prophylaxis, contraindicated in the setting of hemoptysis. 8. Disposition. Admit to telemetry as an inpatient. TIME SPENT: 60 minutes was spent on this admission. [id number]/[id number] #: [id number] CAT[facility]
[2018-08-14] MEDS: DOLUTEGRAVIR 50 MG PO SCH (15:34)
[2018-08-14] MEDS: ZOSYN 3.375 GM Q8H per EXTENDED INFUSION IVPB SCH ×4 (16:38→23:44)
[2018-08-14 16:53] LABS: Troponin I 0.05 ng/mL (<0.04)
[2018-08-14] MEDS ORDERED: Vancomycin(*) 1,250 MG in NS 0.9% 250 ML* 250 ML IVPB SCH (18:00)
[2018-08-14] MEDS: Sacubitril/Valsartan 49/51(NF) TAB PO SCH (20:01)
[2018-08-14] MEDS: Carvedilol TAB* 6.25 MG PO SCH (20:22)
[2018-08-14] MEDS: Vancomycin(*) 1,250 MG in NS 0.9% 250 ML* 250 ML IVPB SCH (20:22)
[2018-08-14] MEDS: Acetaminophen TAB* 325 MG PO PRN (21:51)
[2018-08-14] MEDS: Benzonatate CAP* 100 MG PO SCH (23:44)
[2018-08-15 00:13] LABS: Troponin I 0.05 ng/mL (<0.04)
[2018-08-15] MEDS: oxyCODONE/Acetamin 5/325 MG* TAB PO PRN ×2 (04:06→13:42)
[2018-08-15] MEDS: Vancomycin(*) 1,250 MG in NS 0.9% 250 ML* 250 ML IVPB SCH ×2 (04:07→13:10)
[2018-08-15 05:51] LABS: ABS Basophils 0.1 10^3/ul (0-0.2); ABS Eosinophils 0.2 10^3/ul (0-0.6); ABS Lymphocytes 1.8 10^3/ul (1.0-4.8); Eosinophil % 2.1 %; Hematocrit 42 % (42-52); Mean Corpuscular HGB Conc 33 g/dL (31-36); Mean Corpuscular Hemoglobin 29 pg (27-31); Mean Corpuscular Volume 89 fL (80-94); Mean Platelet Volume 8.8 fL (7.4-10.4); Nucleated Red Blood Cells % 0.1; Platelet Count 176 10^3/uL (150-450); Red Blood Count 4.78 10^6 /uL (4.18-5.48); Red Cell Distribution Width 15 % (10.5-15); White Blood Count 10.1 10^3/uL (3.5-10.8)
[2018-08-15 05:55] LABS: INR 1.27 (0.82-1.09)
[2018-08-15 06:07] LABS: BUN/Creatinine Ratio 16.7 (8-20); Calcium 8.6 mg/dL (8.6-10.3); EGFR African American 86.1 (>60); EGFR Non-African American 71.1 (>60); Potassium 3.9 mmol/L (3.5-5.0)
[2018-08-15] MEDS ORDERED: EMTRICITABINE PO SCH (09:00)
[2018-08-15] MEDS ORDERED: TENOFOVIR PO SCH (09:00)
[2018-08-15] MEDS: Spironolactone TAB* 25 MG PO SCH (10:20)
[2018-08-15] MEDS: Benzonatate CAP* 100 MG PO SCH ×3 (10:20→22:12)
[2018-08-15] MEDS: CMC:Pravastatin (NF) 20 MG TAB PO SCH (10:20)
[2018-08-15] MEDS: Carvedilol TAB* 6.25 MG PO SCH ×2 (10:20→22:12)
[2018-08-15] MEDS: Insulin LISPRO* 1 UNITS UNIT SUBCUT SCH ×2 (10:21→13:10)
[2018-08-15] MEDS: Sacubitril/Valsartan 49/51(NF) TAB PO SCH ×2 (10:21→22:13)
[2018-08-15] MEDS: ZOSYN 3.375 GM Q8H per EXTENDED INFUSION IVPB SCH ×4 (10:30→15:57)
[2018-08-15] MEDS ORDERED: Vancomycin Trough Check NOTE FOLLOW UP ONE (11:30)
[2018-08-15] MEDS: Albuterol HFA INHALER* 8 gm MDI INH PRN (12:36)
[2018-08-15] MEDS: DOLUTEGRAVIR 50 MG PO SCH (13:43)
[2018-08-15] MEDS: TENOFOVIR PO SCH (13:43)
[2018-08-15] MEDS: EMTRICITABINE PO SCH (13:43)
[2018-08-15] MEDS ORDERED: Furosemide IV* 10 MG/ML 2 ML VIAL (20 MG) IV ONE (15:50)
--- NOTE | 2018-08-15 20:55 | PN ---
Subjective Date of Service: 08/15/18 Interval History: Was feeling well this mroning when I rounded on him, but then this afternoon when his O2 was titrated down, he began to feel more short of breath, though O2 sat remained acceptable. requested IV lasix due to ongoing shortness of breath at rest. Ambulates independently around his room with no difficulty. No chest pain, no fevers, otherwise is feeling good. Objective Active Medications: Acetaminophen (Tylenol Tab*) 650 mg PO Q4H PRN PRN Reason: FEVER/PAIN Last Admin: 08/14/18 21:51 Dose: 650 mg Albuterol (Ventolin Hfa Inhaler*) 2 puff INH BID PRN PRN Reason: SOB/WHEEZING Last Admin: 08/15/18 12:36 Dose: 2 puff Alprazolam (Xanax Tab*) 1 mg PO BID PRN PRN Reason: ANXIETY Benzonatate (Tessalon Cap*) 100 mg PO TID [facility] Last Admin: 08/15/18 13:43 Dose: 100 mg Carvedilol (Coreg Tab*) 12.5 mg PO BID [facility] Last Admin: 08/15/18 10:20 Dose: 12.5 mg Dextrose (D50w Syringe 50 Ml*) 12.5 gm IV PUSH .FOR FS < 60 - SS PRN PRN Reason: FS < 60 Dolutegravir Sodium (Tivicay (Nf)) 50 mg PO 1400 [facility] Last Admin: 08/15/18 13:43 Dose: 50 mg Emtricitabine/Tenofovir (Descovy (Nf)) 1 tab PO DAILY [facility] Last Admin: 08/15/18 13:43 Dose: 1 tab Furosemide (Lasix Iv*) 60 mg IV 0800,1700 [facility] Piperacillin Sod/Tazobactam (Sod 3.375 gm/ Sodium Chloride) 100 mls @ 25 mls/ hr IVPB Q8H [facility] Last Admin: 08/15/18 15:57 Dose: 25 mls/hr Nicotine Polacrilex (Nicotine Gum*) 2 mg PO Q2H PRN PRN Reason: CRAVING Nicotine Polacrilex (Nicotine Lozenge Mini) 2 mg MT Q2H PRN PRN Reason: CRAVING Oxycodone/Acetaminophen (Percocet 5/325 Tab*) 2 tab PO Q8H PRN PRN Reason: PAIN Last Admin: 08/15/18 13:42 Dose: 2 tab Pharmacy Consult (Zosyn Per Pharmacy*) 1 note FOLLOW UP .ZOSYN PER PHARMACY [facility] Pravastatin Sodium (Pravachol (Nf)) 40 mg PO DAILY [facility] Last Admin: 08/15/18 10:20 Dose: 40 mg Sacubitril/Valsartan (Entresto 49/51(Nf)) 1 tab PO BID [facility] Last Admin: 08/15/18 10:21 Dose: Not Given Spironolactone (Aldactone Tab*) 25 mg PO DAILY [facility] Last Admin: 08/15/18 10:20 Dose: 25 mg Vital Signs - 8 hr 08/15/18 08/15/18 08/15/18 13:42 16:15 16:29 Temperature 96.1 F Pulse Rate 81 Respiratory 18 18 20 Rate Blood Pressure 117/65 (mmHg) O2 Sat by Pulse 95 Oximetry Oxygen Devices in Use Now: Nasal Cannula Appearance: alert, well appearing, speaking in full sentences Eyes: No Scleral Icterus Ears/Nose/Mouth/Throat: NL Teeth, Lips, Gums Neck: NL Appearance and Movements; NL JVP, - - I cannot see JVP Respiratory: Symmetrical Chest Expansion and Respiratory Effort Cardiovascular: NL Sounds; No Murmurs; No JVD, RRR Abdominal: NL Sounds; No Tenderness; No Distention Lymphatic: No Cervical Adenopathy Extremities: No Edema Skin: No Rash or Ulcers Neurological: Alert and Oriented x 3 Result Diagrams: 08/15/18 05:16 08/15/18 05:16 Microbiology and Other Data: Microbiology 08/14/18 08:42 Urine Culture - Final Urine No Growth (<1,000 CFU/mL) 08/14/18 07:39 Aerobic Blood Culture - Preliminary Blood Venous No Growth Day 1 Anaerobic Blood Culture - Preliminary No Growth Day 1 08/14/18 07:44 Aerobic Blood Culture - Preliminary Blood Venous No Growth Day 1 Anaerobic Blood Culture - Preliminary No Growth Day 1 08/14/18 13:22 Legionella Urinary Antigen - Final Urine Negative Legionella Antigen Streptococcus pneumoniae Ag Screen - Final Negative S. pneumo Antigen Assess/Plan/Problems-Billing Assessment: This is a 38 year old man with HIV (undetectable viral load), NICM, and mild restrictive lung disease who presented with SOB and cough adn was found to have pneumonia - Patient Problems (1) CAP (community acquired pneumonia) Current Visit: No Status: Acute Code(s): J18.9 - PNEUMONIA, UNSPECIFIED ORGANISM SNOMED Code(s): 409685814 Comment: Sepsis is resolved Unable to provide sputum sample Urine antigens negative. O2 successfully weaned change zosyn to ceftriaxone (2) Acute on chronic systolic (congestive) heart failure Current Visit: Yes Status: Acute Code(s): I50.23 - ACUTE ON CHRONIC SYSTOLIC (CONGESTIVE) HEART FAILURE SNOMED Code(s): 474739508 Comment: start IV diuresis today since sepsis is resolved likely due to recent dietary indiscretion in setting of tobacco cessation (3) DM2 (diabetes mellitus, type 2) Current Visit: No Status: Acute Comment: correction for now (4) HIV (human immunodeficiency virus infection) Current Visit: No Status: Acute Comment: Continue timichelay and alexandery (5) HTN (hypertension) Current Visit: No Status: Acute Code(s): I10 - ESSENTIAL (PRIMARY) HYPERTENSION SNOMED Code(s): 94285005 Comment: normotensive
[2018-08-16] MEDS: Acetaminophen TAB* 325 MG PO PRN (02:12)
[2018-08-16 02:55] VITALS: BP 140/90
[2018-08-16] MEDS: Albuterol HFA INHALER* 8 gm MDI INH PRN (03:45)
[2018-08-16 05:43] LABS: ABS Basophils 0.1 10^3/ul (0-0.2); ABS Eosinophils 0.2 10^3/ul (0-0.6); ABS Lymphocytes 1.9 10^3/ul (1.0-4.8); ABS Monocytes 0.9 10^3/ul (0-0.8); ABS Neutrophils 7.4 10^3/ul (1.5-7.7); Eosinophil % 1.8 %; Hematocrit 44 % (42-52); Hemoglobin 14.4 g/dL (14.0-18.0); Mean Corpuscular HGB Conc 33 g/dL (31-36); Mean Corpuscular Hemoglobin 29 pg (27-31); Mean Corpuscular Volume 88 fL (80-94); Mean Platelet Volume 8.6 fL (7.4-10.4); Nucleated Red Blood Cells % 0.1; Platelet Count 188 10^3/uL (150-450); Red Blood Count 4.94 10^6 /uL (4.18-5.48); Red Cell Distribution Width 15 % (10.5-15); White Blood Count 10.5 10^3/uL (3.5-10.8)
[2018-08-16 05:58] LABS: BUN/Creatinine Ratio 15.7 (8-20); Calcium 9.1 mg/dL (8.6-10.3); EGFR African American 91.6 (>60); EGFR Non-African American 75.7 (>60); Magnesium 2.2 mg/dL (1.9-2.7); Potassium 4.3 mmol/L (3.5-5.0)
[2018-08-16] MEDS ORDERED: Furosemide IV* 10 MG/ML 10 ML VIAL (100 MG) IV SCH (08:00)
[2018-08-16] MEDS: Carvedilol TAB* 6.25 MG PO SCH (09:22)
[2018-08-16] MEDS: Benzonatate CAP* 100 MG PO SCH ×2 (09:22→15:02)
[2018-08-16] MEDS: TENOFOVIR PO SCH (09:23)
[2018-08-16] MEDS: EMTRICITABINE PO SCH (09:23)
[2018-08-16] MEDS: Spironolactone TAB* 25 MG PO SCH (09:23)
[2018-08-16] MEDS: CMC:Pravastatin (NF) 20 MG TAB PO SCH (09:23)
[2018-08-16] MEDS: Sacubitril/Valsartan 49/51(NF) TAB PO SCH (09:26)
[2018-08-16] MEDS: DOLUTEGRAVIR 50 MG PO SCH (15:04)
[2018-08-16 17:49] LABS: 4/8 H/S Ratio 0.5 (>=0.9); CD3 603 cells/mcL (550-2202); CD4 203 cells/mcL (365-1437); CD8 399 cells/mcL (145-846)
== END 2018-08-16 16:33 | disposition home or self-care (01) | DRG 720 ==
LOC: ED 06:58 → MEDTELE 10:17
PROVIDERS: ADMIT Internal Medicine; ATTEND Internal Medicine
DX: A41.9 Sepsis, unspecified organism (principal); J18.9 Pneumonia, unspecified organism; I50.23 Acute on chronic systolic (congestive) heart failure; I42.8 Other cardiomyopathies; R04.2 Hemoptysis; D68.9 Coagulation defect, unspecified; Z21 Asymptomatic human immunodeficiency virus [HIV] infection status; J98.4 Other disorders of lung; I11.0 Hypertensive heart disease with heart failure; E78.00 Pure hypercholesterolemia, unspecified; G47.33 Obstructive sleep apnea (adult) (pediatric); J45.909 Unspecified asthma, uncomplicated; F41.9 Anxiety disorder, unspecified; F32.9 Major depressive disorder, single episode, unspecified; Z87.891 Personal history of nicotine dependence; E11.42 Type 2 diabetes mellitus with diabetic polyneuropathy; Z82.49 Family history of ischemic heart disease and other diseases of the circulatory system; Z82.3 Family history of stroke
CPT/HCPCS: 36415; 71045; 71275; 80048; 80053; 80202; 81003; 81015; 83516; 83605; 83735; 83880; 84484; 85025; 85610; 85730; 86359; 86360; 87040; 87086; 87899; 93005; 94640; 99284; A9270-GY; J0456; J0696; J1940; J2543; J3370; Q9967

== ENCOUNTER 2020-06-03 21:10 | Inpatient (IN) ==
[2020-06-03] MEDS ORDERED: NS 0.9% 1000 ml BAG 1,000 ML IV ONE ×2 (21:48→23:33)
[2020-06-03 22:29] LABS: ALT 108 U/L (7-52); AST 101 U/L (13-39); Albumin 2.9 g/dL (3.2-5.2); Albumin/Globulin Ratio 0.6 (1-3); Alkaline Phosphatase 110 U/L (34-104); Anion Gap 12 mmol/L (2-11); BUN/Creatinine Ratio 26.3 (8-20); Blood Urea Nitrogen 54 mg/dL (6-24); C Reactive Protein 195.16 mg/L (<8.01); CO2 Carbon Dioxide 20 mmol/L (22-32); Calcium 8.8 mg/dL (8.6-10.3); Chloride 89 mmol/L (101-111); EGFR African American 43.3 (>60); EGFR Non-African American 35.8 (>60); Globulin 4.8 g/dL (2-4); Potassium 4.7 mmol/L (3.5-5.0); Sodium 121 mmol/L (135-145); Total Protein 7.7 g/dL (6.4-8.9)
[2020-06-03 22:30] LABS: Hematocrit 44 % (42-52); Mean Corpuscular HGB Conc 32 g/dL (31-36); Mean Corpuscular Hemoglobin 29 pg (27-31); Mean Corpuscular Volume 90 fL (80-94); Red Blood Count 4.85 10^6 /uL (4.18-5.48); Red Cell Distribution Width 15 % (10-15); White Blood Count 18.4 10^3/uL (3.5-10.8)
[2020-06-03 22:32] LABS: Glucose 723 mg/dL (70-100)
[2020-06-03 22:36] LABS: ABS Lymphocytes 0.4 10^3/ul (1.0-4.8); ABS Monocytes 1.1 10^3/ul (0-0.8); ABS Neutrophils 16.7 10^3/ul (1.5-7.7); Eosinophil % 0.1 %; Lymphocyte % 2.4 %; Platelet Count 33 10^3/uL (150-450)
[2020-06-03] MEDS ORDERED: Insulin Infusion 100unit/100mL 100 UNIT/100 ML BAG IV ONE (22:41)
[2020-06-03] MEDS ORDERED: Lactated Ringers 1000 ml BAG 1,000 ML IV ONE (22:41)
[2020-06-03 23:03] LABS: Troponin I 0.06 ng/mL (<0.03)
[2020-06-04] MEDS ORDERED: cefTRIAXone 1 gm/50 mL NS BAG 1 GM/50 ML BAG IV ONE (00:23)
[2020-06-04] MEDS ORDERED: NS 0.9% 1000 ml BAG 1,000 ML IV SCH ×2 (00:45→05:50)
[2020-06-04 00:55] LABS: BUN/Creatinine Ratio 28.7 (8-20); Calcium 8.4 mg/dL (8.6-10.3); EGFR African American 52.3 (>60); EGFR Non-African American 43.2 (>60); Potassium 4.4 mmol/L (3.5-5.0)
[2020-06-04 00:56] LABS: Urine Appearance Clear; Urine Bilirubin Negative (Negative); Urine Blood 2+ (Negative); Urine Color Yellow; Urine Glucose 3+(>=500 mg/dL) (Negative); Urine Ketones Negative (Negative); Urine Nitrite Negative (Negative); Urine Protein 1+(30 mg/dL) (Negative); Urine Specific Gravity 1.022 (1.010-1.030); Urine Urobilinogen Negative (Negative)
[2020-06-04] MEDS ORDERED: Enoxaparin 40 MG/0.4 ML SYR SUBCUT SCH (01:00)
[2020-06-04 01:04] LABS: Urine Bacteria 1+ (Absent); Urine Red Blood Cell Trace(0-2/hpf) (Absent); Urine White Blood Cell Trace(0-5/hpf) (Absent)
[2020-06-04 01:09] LABS: Influenza A Molecular Negative (Negative); Influenza B Molecular Negative (Negative)
[2020-06-04 01:20] LABS: Magnesium 2.8 mg/dL (1.9-2.7)
[2020-06-04 01:30] LABS: Urine Benzodiazepine Screen None Detected (None Detect); Urine Cannabinoids Screen None Detected (None Detect); Urine Opiates Screen None Detected (None Detect)
[2020-06-04] MEDS: Azithromycin 500 mg/250 ml NS 500 MG/250 ML BAG IVPB SCH (02:38)
[2020-06-04] MEDS ORDERED: Insulin Infusion 100unit/100mL 100 UNIT/100 ML BAG IV SCH (03:00)
[2020-06-04] MEDS ORDERED: Dextrose 50% Syringe 50 ml 25 GM/50 ML SYRINGE IV PUSH PRN (04:06)
[2020-06-04] MEDS ORDERED: Albuterol HFA INHALER 8 gm MDI INH PRN (04:30)
[2020-06-04] MEDS: Insulin GLARGINE 100 un/ml 10 ml VIAL SUBCUT SCH ×2 (05:11→08:09)
[2020-06-04 05:30] LABS: INR 1.87 (0.82-1.09)
[2020-06-04 05:34] LABS: Hematocrit 37 % (42-52); Mean Corpuscular HGB Conc 33 g/dL (31-36); Mean Corpuscular Hemoglobin 29 pg (27-31); Mean Corpuscular Volume 88 fL (80-94); Red Blood Count 4.16 10^6 /uL (4.18-5.48); Red Cell Distribution Width 14 % (10-15); White Blood Count 14.8 10^3/uL (3.5-10.8)
[2020-06-04 05:35] LABS: ABS Lymphocytes 0.7 10^3/ul (1.0-4.8); ABS Monocytes 1.4 10^3/ul (0-0.8); ABS Neutrophils 12.6 10^3/ul (1.5-7.7); Eosinophil % 0.2 %; Lymphocyte % 4.9 %
[2020-06-04 05:38] LABS: Anion Gap 6 mmol/L (2-11); BUN/Creatinine Ratio 28.8 (8-20); Blood Urea Nitrogen 46 mg/dL (6-24); CO2 Carbon Dioxide 23 mmol/L (22-32); Chloride 104 mmol/L (101-111); EGFR African American 57.6 (>60); EGFR Non-African American 47.6 (>60); Glucose 185 mg/dL (70-100); Potassium 3.9 mmol/L (3.5-5.0); Sodium 133 mmol/L (135-145)
[2020-06-04 06:03] LABS: Mean Platelet Volume 12.5 fL (7.4-10.4); Platelet Count 30 10^3/uL (150-450)
[2020-06-04 06:46] LABS: Troponin I 0.06 ng/mL (<0.03)
[2020-06-04] MEDS ORDERED: Lactated Ringers 500 ml BAG 500 ML IV ONE ×2 (09:37→15:03)
[2020-06-04 10:21] LABS: Glucose 265 mg/dL (70-100)
[2020-06-04 10:25] LABS: Troponin I 0.04 ng/mL (<0.03)
[2020-06-04 14:24] LABS: Troponin I 0.04 ng/mL (<0.03)
[2020-06-04] MEDS: DOLUTEGRAVIR 50 MG PO SCH (14:24)
[2020-06-04 14:54] LABS: CO2 Carbon Dioxide 17 mmol/L (22-32); Calcium 8.2 mg/dL (8.6-10.3); Chloride 104 mmol/L (101-111); Sodium 130 mmol/L (135-145)
[2020-06-04 14:59] LABS: Anion Gap 9 mmol/L (2-11); Magnesium 2.6 mg/dL (1.9-2.7)
[2020-06-04 15:00] LABS: BUN/Creatinine Ratio 30.4 (8-20); Blood Urea Nitrogen 49 mg/dL (6-24); EGFR African American 57.2 (>60); EGFR Non-African American 47.3 (>60); Glucose 310 mg/dL (70-100); Phosphorus 3.9 mg/dL (2.5-5.0)
[2020-06-04] MEDS ORDERED: Vancomycin 2000 MG X 1 dose, then per Pharmacy PROTOCOL IVPB ONE (15:00)
[2020-06-04] MEDS ORDERED: Sulfamethoxazole/Trimeth IV 0 MG in D5W 500 ml BAG 500 ML IVPB SCH (15:00)
[2020-06-04] MEDS ORDERED: Sulfamethox/Trimethoprim SS TAB 400/80 mg PO SCH (15:30)
[2020-06-04] MEDS ORDERED: Lactated Ringers 1000 ml BAG 1,000 ML IV ONE (16:18)
[2020-06-04] MEDS ORDERED: Simvastatin 20 mg TAB (NF) PO SCH (19:00)
[2020-06-04] MEDS ORDERED: Heparin 5000 UNITS/ML 1 mL VIAL SUBCUT SCH (21:00)
[2020-06-05] MEDS: Azithromycin 500 mg/250 ml NS 500 MG/250 ML BAG IVPB SCH (00:05)
[2020-06-05] MEDS: Vancomycin 1000 MG in NS 0.9% 250 ML IVPB SCH ×2 (03:58→16:45)
[2020-06-05 04:36] LABS: ABS Basophils 0.2 10^3/ul (0-0.2); ABS Eosinophils 0.1 10^3/ul (0-0.6); ABS Lymphocytes 0.9 10^3/ul (1.0-4.8); ABS Monocytes 1.4 10^3/ul (0-0.8); ABS Neutrophils 14.5 10^3/ul (1.5-7.7); Eosinophil % 0.4 %; Hematocrit 35 % (42-52); Hemoglobin 11.3 g/dL (14.0-18.0); Lymphocyte % 5.3 %; Mean Corpuscular HGB Conc 32 g/dL (31-36); Mean Corpuscular Hemoglobin 28 pg (27-31); Mean Corpuscular Volume 88 fL (80-94); Mean Platelet Volume 10.2 fL (7.4-10.4); Platelet Count 19 10^3/uL (150-450); Red Blood Count 3.97 10^6 /uL (4.18-5.48); Red Cell Distribution Width 14 % (10-15); White Blood Count 17.1 10^3/uL (3.5-10.8)
[2020-06-05 04:50] LABS: BUN/Creatinine Ratio 29.9 (8-20); Calcium 8.1 mg/dL (8.6-10.3); EGFR African American 70.7 (>60); EGFR Non-African American 58.5 (>60); Magnesium 2.4 mg/dL (1.9-2.7); Phosphorus 3.9 mg/dL (2.5-5.0); Potassium 4.1 mmol/L (3.5-5.0)
[2020-06-05] MEDS: Insulin GLARGINE 100 un/ml 10 ml VIAL SUBCUT SCH (08:46)
[2020-06-05] MEDS: NORMOSOL-R pH 7.4 1000 mL BAG 1,000 ML IV SCH ×2 (10:09→23:05)
[2020-06-05] MEDS: DOLUTEGRAVIR 50 MG PO SCH (14:31)
[2020-06-05 16:22] LABS: Hematocrit 36 % (42-52); Hemoglobin 11.9 g/dL (14.0-18.0); Mean Corpuscular HGB Conc 33 g/dL (31-36); Mean Corpuscular Hemoglobin 29 pg (27-31); Mean Corpuscular Volume 88 fL (80-94); Red Blood Count 4.12 10^6 /uL (4.18-5.48); Red Cell Distribution Width 15 % (10-15); White Blood Count 16.4 10^3/uL (3.5-10.8)
[2020-06-05 16:31] LABS: Albumin 2.3 g/dL (3.2-5.2); Albumin/Globulin Ratio 0.6 (1-3); Calcium 8.4 mg/dL (8.6-10.3); EGFR African American 75.3 (>60); EGFR Non-African American 62.2 (>60); Globulin 3.9 g/dL (2-4); Potassium 4.2 mmol/L (3.5-5.0); Total Bilirubin 0.7 mg/dL (0.2-1.0); Total Protein 6.2 g/dL (6.4-8.9)
[2020-06-05 16:46] LABS: ABS Basophils 0.1 10^3/ul (0-0.2); ABS Eosinophils 0.1 10^3/ul (0-0.6); ABS Lymphocytes 0.9 10^3/ul (1.0-4.8); ABS Monocytes 1.3 10^3/ul (0-0.8); Eosinophil % 0.4 %; Lymphocyte % 5.7 %; Platelet Count 21 10^3/uL (150-450)
[2020-06-05] MEDS ORDERED: Gentamicin ADULT 40 MG/ML VIAL (2 ML VIAL = 80 MG) IVPB ONE (22:43)
[2020-06-05] MEDS ORDERED: Gentamicin ADULT 100 MG in NS 0.9% 100 ml BAG 100 ML IVPB ONE (23:00)
[2020-06-06] MEDS: Azithromycin 500 mg/250 ml NS 500 MG/250 ML BAG IVPB SCH (00:25)
[2020-06-06] MEDS: Vancomycin 1000 MG in NS 0.9% 250 ML IVPB SCH ×2 (03:25→16:26)
[2020-06-06 04:37] LABS: Hematocrit 35 % (42-52); Hemoglobin 11.3 g/dL (14.0-18.0); Mean Corpuscular HGB Conc 33 g/dL (31-36); Mean Corpuscular Hemoglobin 29 pg (27-31); Mean Corpuscular Volume 88 fL (80-94); Mean Platelet Volume 11.5 fL (7.4-10.4); Platelet Count 29 10^3/uL (150-450); Red Blood Count 3.94 10^6 /uL (4.18-5.48); Red Cell Distribution Width 15 % (10-15); White Blood Count 19.7 10^3/uL (3.5-10.8)
[2020-06-06 04:56] LABS: ABS Basophils 0.1 10^3/ul (0-0.2); ABS Eosinophils 0.1 10^3/ul (0-0.6); ABS Lymphocytes 0.9 10^3/ul (1.0-4.8); ABS Monocytes 1.6 10^3/ul (0-0.8); ABS Neutrophils 17.1 10^3/ul (1.5-7.7); Eosinophil % 0.5 %; Lymphocyte % 4.4 %
[2020-06-06 05:01] LABS: Albumin 2.2 g/dL (3.2-5.2); Albumin/Globulin Ratio 0.6 (1-3); BUN/Creatinine Ratio 24.1 (8-20); Calcium 8.2 mg/dL (8.6-10.3); EGFR African American 90.7 (>60); Globulin 3.7 g/dL (2-4); Magnesium 2.1 mg/dL (1.9-2.7); Phosphorus 2.9 mg/dL (2.5-5.0); Potassium 3.8 mmol/L (3.5-5.0); Total Bilirubin 0.7 mg/dL (0.2-1.0); Total Protein 5.9 g/dL (6.4-8.9)
[2020-06-06] MEDS ORDERED: Potassium Chlor 20 meq TAB.ER PO ONE (07:05)
[2020-06-06] MEDS ORDERED: Vancomycin per Pharmacy 1 EA NOTE FOLLOW UP PRN (08:31)
[2020-06-06] MEDS ORDERED: KCL 10 MEQ/50 ML IVPREMIX 10 MEQ/50 ML BAG IV ONE (08:32)
[2020-06-06] MEDS: Insulin GLARGINE 100 un/ml 10 ml VIAL SUBCUT SCH (09:25)
[2020-06-06] MEDS ORDERED: RIFAMPIN IVPB SCH (10:00)
[2020-06-06] MEDS ORDERED: NS 0.9% IVPB SCH ×2 (10:00→11:00)
[2020-06-06] MEDS ORDERED: Gentamicin ADULT per pharmacy 1 NOTE MISC FOLLOW UP PRN (10:09)
[2020-06-06] MEDS ORDERED: GENTAMICIN ADULT IVPB SCH (11:00)
[2020-06-06] MEDS ORDERED: Vancomycin Trough Check NOTE FOLLOW UP ONE (15:30)
[2020-06-06 16:03] VITALS: BP 118/86
[2020-06-06] MEDS ORDERED: Vancomycin 1,250 MG in NS 0.9% 250 ml 250 ML IVPB SCH (16:30)
[2020-06-06] MEDS ORDERED: DOLUTEGRAVIR 50 MG PO SCH (21:00)
[2020-06-07] MEDS ORDERED: Vancomycin Trough Check NOTE FOLLOW UP ONE (16:00)
== END 2020-06-06 16:00 | disposition short-term general hospital (02) | DRG 720 ==
LOC: ED 21:10 → ICU 06-04 00:02
PROVIDERS: ADMIT Internal Medicine; ATTEND Internal Medicine